=== PATIENT | female | born 1990 | race Caucasian/White ===

== ENCOUNTER 2017-08-17 20:50 | Emergency (ER) | payer OTHER ==
[2017-08-17 20:58] VITALS: BP 116/73; PULSE 97; TEMP 98.2; BMI 46.9
--- NOTE | 2017-08-17 21:00 | PDOC ---
Rapid Medical Evaluation Chief Complaint: Pain Time Seen by Provider: 08/17/17 20:57 Medical Evaluation: Allergies Allergy/AdvReac Type Severity Reaction Status Date / Time Penicillins Allergy Verified 08/17/17 20:56 Vital Signs Temp Pulse Resp BP Pulse Ox 98.2 F 97 H 16 116/73 99 08/17/17 20:56 08/17/17 20:56 08/17/17 20:56 08/17/17 20:56 08/17/17 20:56 08/17/17 20:58 Pt with c/o: periumbilical pain x 5 days, no other complaints, lmp 07/17, lbm 3 days ago? ( pt states normal) Pt on brief exam: vss, abd distention, Pt ordered: ua, hcg urine, kub Pt to proceed to the ED Discharge Disposition - Diagnosis Abdominal pain - Referrals - Patient Instructions - Post Discharge Activity
[2017-08-17 22:01] LABS: URINE APPEARANCE CLOUDY; URINE BILIRUBIN NEGATIVE (NEGATIVE); URINE BLOOD NEGATIVE (NEGATIVE); URINE COLOR YELLOW; URINE GLUCOSE (UA) NEGATIVE (NEGATIVE); URINE KETONE NEGATIVE (NEGATIVE); URINE NITRITE NEGATIVE (NEGATIVE); URINE PROTEIN NEGATIVE (NEGATIVE); URINE UROBILINOGEN NEGATIVE mg/dL (0.2-1.0)
[2017-08-17 22:08] LABS: URINE LEUK ESTERASE 3+ (NEGATIVE)
[2017-08-17 22:09] LABS: EPI CELLS MANY /HPF (FEW); URINE BACTERIA RARE /hpf (NONE SEEN); URINE MUCUS RARE
[2017-08-17 22:10] LABS: HCG,QUALITATIVE URINE NEGATIVE
--- NOTE | 2017-08-17 22:16 | PDOC ---
History of Present Illness - General Chief Complaint: Pain Stated Complaint: ABDOMINAL PAIN Time Seen by Provider: 08/17/17 20:57 History Source: Patient - History of Present Illness Initial Comments: 08/17/17 22:35 26 year old female with epigastric/ midgastric pain x 1 day worse after eating. denies NVD, chest pain, fever/ chills. no pmhx. Past History - Past Medical History Allergies/Adverse Reactions: Allergies Allergy/AdvReac Type Severity Reaction Status Date / Time Penicillins Allergy Verified 08/17/17 20:56 Home Medications: Ambulatory Orders Famotidine [Pepcid] 40 mg PO DAILY #7 tablet 08/18/17 - Suicide/Smoking/Psychosocial Hx Smoking History: Never smoked Hx Alcohol Use: No Drug/Substance Use Hx: No Review of Systems - Review of Systems Able to Perform ROS?: Yes Is the patient limited Latvian proficient: No Constitutional: No: Symptoms Reported, See HPI, Chills, Diaphoresis, Fever, Loss of Appetite, Malaise, Night Sweats, Weakness, Weight Stable, Unintentional Wgt. Loss, Unexplained wgt Loss, Other Cardiac (ROS): No: Symptoms Reported, See HPI, Chest Pain, Edema, Irregular Heart Rate, Lightheadedness, Palpitations, Syncope, Chest Tightness, Other ABD/GI: Yes: Other (mid/ epigastric pain and tenderness). No: Symptoms Reported , See HPI, Abdominal Distended, Abd. Pain w/ defecation, Blood Streaked Bowels, Constipated, Diarrhea, Difficulty Swallowing, Nausea, Poor Appetite, Poor Fluid Intake, Rectal Bleeding, Vomiting, Indigestion, Abdominal cramping, Tarry Stools : No: Symptoms Reported, See HPI, Burning, Dysuria, Discharge, Frequency, Flank Pain, Hematuria, Incontinence, Pain, Urgency, Testicular Mass, Testicular Swelling, Lesions, Testicular Pain, Other *Physical Exam - Vital Signs Last Vital Signs Temp Pulse Resp BP Pulse Ox 98.2 F 97 H 16 116/73 99 08/17/17 20:56 08/17/17 20:56 08/17/17 20:56 08/17/17 20:56 08/17/17 20:56 - Physical Exam General Appearance: Yes: Appropriately Dressed Respiratory/Chest: positive: Lungs Clear, Normal Breath Sounds Cardiovascular: positive: Regular Rhythm, Regular Rate Gastrointestinal/Abdominal: positive: Normal Bowel Sounds, Tender (midgastric/ epigastric), Soft Musculoskeletal: positive: Normal Inspection Extremity: positive: Normal Capillary Refill, Normal Inspection, Normal Range of Motion Integumentary: positive: Normal Color, Dry, Warm Neurologic: positive: Fully Oriented, Alert, Normal Mood/Affect ED Treatment Course - LABORATORY CBC & Chemistry Diagram: 08/17/17 22:20 08/17/17 22:20 - ADDITIONAL ORDERS Additional order review: Laboratory Results 08/17/17 21:03 Urine Color Yellow Urine Appearance Cloudy Urine pH 6.0 Ur Specific [place] 1.020 Urine Protein Negative Urine Glucose (UA) Negative Urine Ketones Negative Urine Blood Negative Urine Nitrite Negative Urine Bilirubin Negative Urine Urobilinogen Negative Ur Leukocyte Esterase 3+ H Progress Note - Progress Note Progress Note: A: abdominal pain P; CBC CMP UA UCX HCG abdominal u/s: negative CTAP : negatibe *DC/Admit/Observation/Transfer Diagnosis at time of Disposition: Abdominal pain Qualifiers: Abdominal location: upper abdomen, unspecified Qualified Code(s): R10.10 - Upper abdominal pain, unspecified - Discharge Dispostion Disposition: HOME - Prescriptions Prescriptions: Famotidine [Pepcid] 40 mg PO DAILY #7 tablet - Referrals Referrals: Jose M Ferrell MD [Staff Physician] - - Patient Instructions Printed Discharge Instructions: DI for Abdominal Pain-Adult Additional Instructions: drink plenty of fluids. start a bland diet follow up with a gastrenterologist as soon as possible. return to the ED if symptoms worsen. - Post Discharge Activity
[2017-08-17 22:39] LABS: BASO % 1.1 % (0-2.0); EOS % 2.3 % (0-4.5); HEMATOCRIT 31.5 % (32.4-45.2); HEMOGLOBIN 9.9 GM/dL (10.7-15.3); LYMPH % 21.4 % (8-40); MCH 22.3 pg (25.7-33.7); MCHC 31.6 g/dl (32.0-36.0); MEAN CELL VOLUME 70.6 fl (80-96); MONO % 6.2 % (3.8-10.2); PLATELET COUNT 318 K/MM3 (134-434); RBC 4.46 M/mm3 (3.60-5.2); RDW 19.9 % (11.6-15.6)
[2017-08-17 22:46] LABS: ADD RBC MORPHOLOGY YES
[2017-08-17] MEDS ORDERED: RANITIDINE HCL 150 MG TABLET (FP) PO ONE (23:19)
[2017-08-17] MEDS ORDERED: DICYCLOMINE HCL 10 MG CAPSULE PO ONE (23:19)
[2017-08-17 23:22] LABS: ALBUMIN 3.5 g/dl (3.4-5.0); ANION GAP 9 (8-16); ANISOCYTOSIS 2+; BILIRUBIN,TOTAL 0.3 mg/dL (0.2-1.0); BLOOD UREA NITROGEN 16 mg/dL (7-18); CALCIUM 8.7 mg/dL (8.5-10.1); CHLORIDE 106 mmol/L (98-107); CO2 27 mmol/L (21-32); CREATININE 0.8 mg/dL (0.55-1.02); GLUCOSE,RANDOM 87 mg/dL (74-106); POTASSIUM 3.9 mmol/L (3.5-5.1); SGOT/AST 18 U/L (15-37); SODIUM 142 mmol/L (136-145); TOT PROT 7.3 g/dl (6.4-8.2)
[2017-08-17 23:23] LABS: MACROCYTOSIS 1+; OVALOCYTE 1+
[2017-08-17 23:24] LABS: ALK PHOS 78 U/L (45-117); PLATELET ESTIMATE ADEQUATE; SGPT/ALT 25 U/L (12-78)
[2017-08-17] MEDS ORDERED: RANITIDINE HCL 150 MG TABLET (FP) ONE (23:24)
[2017-08-17] MEDS ORDERED: DICYCLOMINE HCL 10 MG CAPSULE ONE (23:24)
--- NOTE | 2017-08-18 00:03 | PDOC ---
*Physical Exam - Vital Signs Last Vital Signs Temp Pulse Resp BP Pulse Ox 98.2 F 97 H 16 116/73 99 08/17/17 20:56 08/17/17 20:56 08/17/17 20:56 08/17/17 20:56 08/17/17 20:56 - Physical Exam General Appearance: Yes: Nourished, Appropriately Dressed. No: Apparent Distress ED Treatment Course - LABORATORY CBC & Chemistry Diagram: 08/17/17 22:20 08/17/17 22:20 - ADDITIONAL ORDERS Additional order review: Laboratory Results 08/17/17 08/17/17 22:20 21:03 Sodium 142 Potassium 3.9 Chloride 106 Carbon Dioxide 27 Anion Gap 9 BUN 16 Creatinine 0.8 Creat Clearance w eGFR > 60 Random Glucose 87 Calcium 8.7 Total Bilirubin 0.3 AST 18 ALT 25 Alkaline Phosphatase 78 Total Protein 7.3 Albumin 3.5 Urine Color Yellow Urine Appearance Cloudy Urine pH 6.0 Ur Specific [place] 1.020 Urine Protein Negative Urine Glucose (UA) Negative Urine Ketones Negative Urine Blood Negative Urine Nitrite Negative Urine Bilirubin Negative Urine Urobilinogen Negative Ur Leukocyte Esterase 3+ H Urine WBC (Auto) 7 Urine RBC (Auto) 2 Ur Epithelial Cells Many Urine Bacteria Rare Urine Mucus Rare Urine HCG, Qual Negative 08/17/17 22:20 RBC 4.46 MCV 70.6 L MCHC 31.6 L RDW 19.9 H MPV 9.0 Neutrophils % 69.0 Lymphocytes % 21.4 Monocytes % 6.2 Eosinophils % 2.3 Basophils % 1.1 - Medications Given in the ED: ED Medications Discontinued Medications Generic Name Dose Route Start Last Admin Trade Name Nolan PRN Reason Stop Dose Admin Dicyclomine HCl 10 mg 08/17/17 23:19 08/17/17 23:28 Bentyl - PO 08/17/17 23:20 10 mg ONCE ONE Administration Ranitidine HCl 300 mg 08/17/17 23:19 08/17/17 23:28 Zantac - PO 08/17/17 23:20 300 mg ONCE ONE Administration Medical Decision Making - Medical Decision Making 08/18/17 00:02 Pt seen/examined, discussed case with GOMEZ King. Pt with abd pain and reported fever at home of 100.4. No vomiting, diarrhea. +epigastric and periumbilical tnd. US abd normal. +leukocytosis, afebrile in ED. Will CT abd/pelvis with PO and IV contrast to eval for appendicitis. Other possibilities on ddx include gastritis, PUD. If CT normal, likely outpt GI f/u. *DC/Admit/Observation/Transfer Diagnosis at time of Disposition: Abdominal pain Qualifiers: Abdominal location: upper abdomen, unspecified Qualified Code(s): R10.10 - Upper abdominal pain, unspecified - Referrals - Patient Instructions - Post Discharge Activity
[2017-08-18] MEDS ORDERED: KETOROLAC TROMETHAMINE 30 MG/1 ML VIAL IVPUSH ONE (03:01)
[2017-08-18] MEDS ORDERED: KETOROLAC TROMETHAMINE 30 MG/1 ML VIAL ONE (03:27)
== END 2017-08-18 03:51 | disposition home or self-care (01) ==
LOC: JER 20:50
PROC: 3E0333Z Introduction of Anti-inflammatory into Peripheral Vein, Percutaneous Approach (ICD-10-PCS; principal; 2017-08-17)
DX: R10.10 Upper abdominal pain, unspecified (principal)
CPT/HCPCS: 36415; 74018-TC; 74177-TC; 76705-TC; 80053; 81003; 81015; 84703; 85025; 86850; 86900; 86901; 99282-25

== ENCOUNTER 2017-08-19 17:50 | Emergency (ER) | payer OTHER ==
--- NOTE | 2017-08-19 17:52 | PDOC ---
Rapid Medical Evaluation Time Seen by Provider: 08/19/17 17:52 Medical Evaluation: Allergies Allergy/AdvReac Type Severity Reaction Status Date / Time Penicillins Allergy Verified 08/19/17 17:52 08/19/17 17:52 Ortherwise healthy 26 year old female seen 08/17 with epigastric abdominal pain. U/s and CT at that time unremarkable except for fecal retention. Returns today with persistent symptoms, pain worse with eating. New symptom of diarrhea. Taking Pepcid without relief of pain. V/s unremarkable. Labs including CBC, CMP, lipase, UA, urine To Main ED for further evaluation
[2017-08-19 17:55] VITALS: BP 115/65; PULSE 83; TEMP 98.1; BMI 40.7
[2017-08-19 18:22] LABS: BASO % 0.4 % (0-2.0); EOS % 3.9 % (0-4.5); HEMATOCRIT 34.6 % (32.4-45.2); LYMPH % 23.6 % (8-40); MCH 22.5 pg (25.7-33.7); MCHC 31.8 g/dl (32.0-36.0); MEAN CELL VOLUME 70.7 fl (80-96); MONO % 5.4 % (3.8-10.2); NEUT % 66.7 % (42.8-82.8); PLATELET COUNT 368 K/MM3 (134-434); RBC 4.89 M/mm3 (3.60-5.2); RDW 20.2 % (11.6-15.6); WHITE BLOOD COUNT 12.4 K/mm3 (4.0-10.0)
[2017-08-19 18:22] LABS: HCG,QUALITATIVE URINE NEGATIVE
[2017-08-19 18:26] LABS: URINE APPEARANCE SLCLOUDY; URINE BILIRUBIN NEGATIVE (NEGATIVE); URINE BLOOD NEGATIVE (NEGATIVE); URINE COLOR LTYELLOW; URINE GLUCOSE (UA) NEGATIVE (NEGATIVE); URINE KETONE NEGATIVE (NEGATIVE); URINE NITRITE NEGATIVE (NEGATIVE); URINE PROTEIN NEGATIVE (NEGATIVE); URINE UROBILINOGEN NEGATIVE mg/dL (0.2-1.0)
[2017-08-19 18:28] LABS: URINE LEUK ESTERASE 2+ (NEGATIVE)
[2017-08-19 18:35] LABS: EPI CELLS MODERATE /HPF (FEW); URINE BACTERIA RARE /hpf (NONE SEEN); URINE MUCUS RARE
[2017-08-19 18:56] LABS: ALBUMIN 3.8 g/dl (3.4-5.0); ANION GAP 3 (8-16); BLOOD UREA NITROGEN 11 mg/dL (7-18); CHLORIDE 104 mmol/L (98-107); CO2 30 mmol/L (21-32); GLUCOSE,RANDOM 85 mg/dL (74-106); LIPASE 198 U/L (73-393); POTASSIUM 4.3 mmol/L (3.5-5.1); SGPT/ALT 25 U/L (12-78); SODIUM 137 mmol/L (136-145)
[2017-08-19 18:58] LABS: ALK PHOS 83 U/L (45-117); BILIRUBIN,TOTAL 0.5 mg/dL (0.2-1.0); CREATININE 0.7 mg/dL (0.55-1.02); SGOT/AST 18 U/L (15-37); TOT PROT 7.9 g/dl (6.4-8.2)
--- NOTE | 2017-08-19 19:33 | PDOC ---
History of Present Illness - General Chief Complaint: Pain Stated Complaint: STOMACH PAIN Time Seen by Provider: 08/19/17 17:52 - History of Present Illness Initial Comments: 08/19/17 19:29 26 yo F with h/o sickle cell trait who presents with abdominal pain. Patient reports ongoing burning/sharp epigastria/substernal abdominal pain for the past week. Pain is unrelenting, worse with meals and supine positioning, and asx. / nausea w/out vomiting. 1 episode of non bloody, loose stool. Denies F/C, CP, SOB , urinary complaints, irregular vaginal bleeding, hematuria, weakness, lightheadedness, LOC. Denies abdominal trauma or complaints. Evaluated in [facility] ED ( 08/18/17) CT AP ( 08/18/17) : Fecal retention. Otherwise unremarkable. GB U /S: Unremarkable. Sent home with Pepcid prescription. Neg evidence of cholecystitis, cholelithiasis, or biliary dz. Denies h/o abdominal pathology or surgery. Denies h/o endoscopy or PUD. Past History - Past Medical History Allergies/Adverse Reactions: Allergies Allergy/AdvReac Type Severity Reaction Status Date / Time Penicillins Allergy Verified 08/19/17 17:52 Home Medications: Ambulatory Orders Famotidine [Pepcid] 40 mg PO DAILY #7 tablet 08/18/17 Pantoprazole Sodium [Protonix] 40 mg PO DAILY #30 tablet.dr SANABRIA 1 tab 08/19/17 COPD: No - Suicide/Smoking/Psychosocial Hx Smoking History: Never smoked Have you smoked in the past 12 months: No Information on smoking cessation initiated: No Hx Alcohol Use: No Drug/Substance Use Hx: No Substance Use Type: None Review of Systems - Review of Systems Comments:: 08/19/17 19:29 GENERAL/CONSTITUTIONAL: No fever or chills. No weakness. HEAD, EYES, EARS, NOSE AND THROAT: No change in vision. No ear pain or discharge. No sore throat.- CARDIOVASCULAR: No chest pain or shortness of breath RESPIRATORY: No cough, wheezing, or hemoptysis. GASTROINTESTINAL: + Abdominal pain. No nausea, vomiting, diarrhea or constipation. GENITOURINARY: No dysuria, frequency, or change in urination. MUSCULOSKELETAL: No joint or muscle swelling or pain. No neck or back pain. SKIN: No rash NEUROLOGIC: No headache, vertigo, loss of consciousness, or change in strength/ sensation. ENDOCRINE: No increased thirst. No abnormal weight change HEMATOLOGIC/LYMPHATIC: No anemia, easy bleeding, or history of blood clots. ALLERGIC/IMMUNOLOGIC: No hives or skin allergy. *Physical Exam - Vital Signs Last Vital Signs Temp Pulse Resp BP Pulse Ox 98.1 F 83 18 115/65 100 08/19/17 17:52 08/19/17 17:52 08/19/17 17:52 08/19/17 17:52 08/19/17 17:52 - Physical Exam Comments: 08/19/17 19:29 GENERAL: Awake, alert, and fully oriented, in no acute distress HEAD: No signs of trauma, normocephalic, atraumatic EYES: PERRLA, EOMI, sclera anicteric, conjunctiva clear ENT: Hearing grossly normal, nares patent, oropharynx clear without exudates. Moist mucosa NECK: Normal ROM, no JVD, or masses LUNGS: No distress, speaks full sentences, clear to auscultation bilaterally HEART: Regular rate and rhythm, normal S1 and S2, no murmurs, rubs or gallops, peripheral pulses normal and equal bilaterally. ABDOMEN: Soft, + epigastric ttp, normoactive bowel sounds. No guarding, no rebound. No masses. Neg rigidity. Neg CVA ttp.Neg suprapubic ttp. EXTREMITIES : Normal inspection, Normal range of motion, no edema. No clubbing or cyanosis. SKIN: Warm, Dry, normal turgor, no rashes or lesions noted. ED Treatment Course - LABORATORY CBC & Chemistry Diagram: 08/19/17 18:02 08/19/17 18:02 - ADDITIONAL ORDERS Additional order review: Laboratory Results 08/19/17 08/19/17 18:10 18:02 Sodium 137 Potassium 4.3 Chloride 104 Carbon Dioxide 30 Anion Gap 3 L BUN 11 Creatinine 0.7 Creat Clearance w eGFR > 60 Random Glucose 85 Calcium 9.0 Total Bilirubin 0.5 D AST 18 ALT 25 Alkaline Phosphatase 83 Total Protein 7.9 Albumin 3.8 Lipase 198 Urine Color Ltyellow Urine Appearance Slcloudy Urine pH 7.0 Ur Specific [place] 1.016 Urine Protein Negative Urine Glucose (UA) Negative Urine Ketones Negative Urine Blood Negative Urine Nitrite Negative Urine Bilirubin Negative Urine Urobilinogen Negative Ur Leukocyte Esterase 2+ H Urine WBC (Auto) 4 Urine RBC (Auto) <1 Ur Epithelial Cells Moderate Urine Bacteria Rare Urine Mucus Rare Urine HCG, Qual Negative 08/19/17 18:02 RBC 4.89 MCV 70.7 L MCHC 31.8 L RDW 20.2 H MPV 9.0 Neutrophils % 66.7 Lymphocytes % 23.6 Monocytes % 5.4 Eosinophils % 3.9 Basophils % 0.4 Medical Decision Making - Medical Decision Making 08/19/17 19:31 26 yo F with h/o sickle cell trait who presents with ongoing unrelenting, burning/sharp epigastria/substernal abdominal pain for the past week. Worse with meals and supine positioning, and asx. / nausea w/out vomiting. 1 episode of non bloody, loose stool today. Denies F/C, CP, SOB, urinary complaints, irregular vaginal bleeding, hematuria, weakness, lightheadedness, LOC. Denies abdominal trauma or complaints. Recently evaluated in [facility] ED ( 08/18/17) with normal CT AP ( 08/18/17) and RUQ U/S. Physical exam with slight ttp. HDS. Patient with s/s likely 2/2/ esophagitis vs gastritis. Possible PUD. Patient advised to f/u with gastroenterology. Low suspicion of pancreatitis, choleycystitis, or other concerning GI pathology given unremarkable abdominal exam and recent normal imaging. ED Course: CBC: Unremarkable CMP: Unremarkble UA: Neg BHCG: Neg Protonix, Carafate, Viscous lidocaine, Maloox Will reassess pain. 08/19/17 20:26 Protonix sent to pharmacy. Patient stable and ready for d/c with return precautions. Advised to f/u with GI at scheduled appointment date. *DC/Admit/Observation/Transfer Diagnosis at time of Disposition: Abdominal pain Qualifiers: Abdominal location: epigastric Qualified Code(s): R10.13 - Epigastric pain - Discharge Dispostion Condition at time of disposition: Stable Admit: No - Prescriptions Prescriptions: Pantoprazole Sodium [Protonix] 40 mg PO DAILY #30 tablet.dr SANABRIA 1 tab - Referrals Referrals: Rylan Luu MD [Staff Physician] - - Patient Instructions Printed Discharge Instructions: DI for Epigastric Pain Additional Instructions: Please return to the emergency department with any new or worsening symptoms or concerns. Please follow up with your primary care physician or gastroenterology within one week. - Post Discharge Activity - Attestations Physician Attestion: 08/19/17 19:32 I attest to the documentation in this note.
[2017-08-19] MEDS ORDERED: MAG HYDROX/AL HYDROX/SIMETH 30 ML UNIT-DOSE CUP PO ONE (19:48)
[2017-08-19] MEDS ORDERED: SUCRALFATE 1 GM TABLET (FP) PO ONE (19:48)
[2017-08-19] MEDS ORDERED: LIDOCAINE VISCOUS 2% ORAL/TOP 20 ML UNIT-DOSE CUP MM ONE (19:48)
[2017-08-19] MEDS ORDERED: SUCRALFATE 1 GM TABLET (FP) ONE (20:16)
[2017-08-19] MEDS ORDERED: MAG HYDROX/AL HYDROX/SIMETH 30 ML UNIT-DOSE CUP ONE (20:16)
[2017-08-19] MEDS ORDERED: LIDOCAINE VISCOUS 2% ORAL/TOP 20 ML UNIT-DOSE CUP ONE (20:16)
[2017-08-19] MEDS ORDERED: PANTOPRAZOLE 40 MG TABLET (FP) PO ONE (20:17)
--- NOTE | 2017-08-19 20:18 | PDOC ---
Attending Attestation - HPI HPI: 08/19/17 20:49 The patient is a 26 year old female with sickle cell trait, who presents to the ED with complaints of epigastric pain for the past few days. She complains of an ongoing, burning, sharp pain that is worse with meals and lying in supine position. The patient reports her pain occasionally radiates to her umbilicus. She denies any nausea or vomiting but reports 1 loose stool today. The patient denies any fever or chills. She denies any GI history or consult in the past. Documentation prepared by Cecilia Villalba, acting as medical laboratory technician for Shamika Lugo DO. <Cecilia Villalba - Last Filed: 08/19/17 20:48> - Resident Resident Name: Dean Stokes - ED Attending Attestation I have performed the following: I have examined & evaluated the patient, The case was reviewed & discussed with the resident, I agree w/resident's findings & plan, Exceptions are as noted - Physicial Exam PE: 08/20/17 01:55 Gen: aaox3, nad heart: +s1s2 reg Lungs: cta b/l abd: soft, mild epigastric ttp ext: no c/c/ce - Medical Decision Making 08/19/17 20:18 I, Dr. Shamika Lugo DO, attest that this document has been prepared under my direction and personally reviewed by me in its entirety. I further attest, that it accurately reflects all work, treatment, procedures and medical decision -making performed by me. 08/19/17 20:33 a/p: 26yo female with epigastric pain -labs and ct last night were negative for acute findings will repeat labs today 08/19/17 20:33 labs reviewed, no acute findings mild anemia pt with mild epigastric burning, suspect PUD vs gastritis will medicate has appt with Lantin for next wednesday discussed dietary changes and need to keep appt with lantin answered all questions <Shamika Lugo - Last Filed: 08/20/17 01:56>
[2017-08-19] MEDS ORDERED: PANTOPRAZOLE 40 MG TABLET (FP) ONE (20:31)
== END 2017-08-19 21:25 | disposition home or self-care (01) ==
LOC: JER 17:50
DX: R10.13 Epigastric pain (principal)
CPT/HCPCS: 36415; 80053; 81003; 81015; 83690; 84703; 85025; 99282-25

== ENCOUNTER 2017-11-06 15:10 | Emergency (ER) | payer OTHER ==
[2017-11-06 15:37] VITALS: BP 106/58; PULSE 93; TEMP 97.6; BMI 40.7
--- NOTE | 2017-11-06 15:41 | PDOC ---
History of Present Illness - General Chief Complaint: Pain Stated Complaint: ABD PAIN Time Seen by Provider: 11/06/17 15:40 - History of Present Illness Initial Comments: 11/06/17 15:57 Ms. Bob is a 27 yo female w/ pmh of sickle trait and prior workup for epigastric pain relieved with protonix who presents c/o a 1 day history of RUQ abdominal pain she describes as burning in nature. She reports it is worse with bending down and that she has also recently felt bloated as well. She says that the pain comes and goes although she cannot relate it to anything. The patient denies chest pain, shortness of breath, headache and dizziness. Denies fever, chills, nausea, vomit, diarrhea and constipation. Denies dysuria, frequency, urgency and hematuria. Allergies: Penicillin Past History - Past Medical History Allergies/Adverse Reactions: Allergies Allergy/AdvReac Type Severity Reaction Status Date / Time Penicillins Allergy Verified 11/06/17 15:31 Home Medications: Ambulatory Orders Pantoprazole Sodium [Protonix -] 40 mg PO DAILY #7 tablet.ec 11/06/17 COPD: No - Suicide/Smoking/Psychosocial Hx Smoking History: Never smoked Have you smoked in the past 12 months: No Hx Alcohol Use: No Drug/Substance Use Hx: No Substance Use Type: None Review of Systems - Review of Systems Comments:: 11/06/17 15:59 GENERAL/CONSTITUTIONAL: No fever or chills. No weakness. HEAD, EYES, EARS, NOSE AND THROAT: No change in vision. No ear pain or discharge. No sore throat. CARDIOVASCULAR: No chest pain or shortness of breath RESPIRATORY: No cough, wheezing, or hemoptysis. GASTROINTESTINAL: +RUQ pain as described. No nausea, vomiting, diarrhea or constipation. GENITOURINARY: No dysuria, frequency, or change in urination. MUSCULOSKELETAL: No joint or muscle swelling or pain. No neck or back pain. SKIN: No rash NEUROLOGIC: No headache, vertigo, loss of consciousness, or change in strength/ sensation. ENDOCRINE: No increased thirst. No abnormal weight change HEMATOLOGIC/LYMPHATIC: No anemia, easy bleeding, or history of blood clots. ALLERGIC/IMMUNOLOGIC: No hives or skin allergy. *Physical Exam - Vital Signs Last Vital Signs Temp Pulse Resp BP Pulse Ox 97.6 F 93 H 18 106/58 99 11/06/17 15:29 11/06/17 15:29 11/06/17 15:29 11/06/17 15:29 11/06/17 15:29 - Physical Exam Comments: 11/06/17 15:59 GENERAL: Awake, alert, and fully oriented, in no acute distress HEAD: No signs of trauma, normocephalic, atraumatic EYES: PERRLA, EOMI, sclera anicteric, conjunctiva clear ENT: Auricles normal inspection, hearing grossly normal, nares patent, oropharynx clear without exudates. Moist mucosa NECK: Normal ROM, supple, no lymphadenopathy, JVD, or masses LUNGS: No distress, speaks full sentences, clear to auscultation bilaterally HEART: Regular rate and rhythm, normal S1 and S2, no murmurs, rubs or gallops, peripheral pulses normal and equal bilaterally. ABDOMEN: +RUQ TTP. Soft, normoactive bowel sounds. No guarding, no rebound. No masses EXTREMITIES: Normal inspection, Normal range of motion, no edema. No clubbing or cyanosis. NEUROLOGICAL: Cranial nerves II through XII grossly intact. Normal speech, normal gait, no focal sensorimotor deficits SKIN: Warm, Dry, normal turgor, no rashes or lesions noted. ED Treatment Course - LABORATORY CBC & Chemistry Diagram: 11/06/17 16:00 11/06/17 16:00 Medical Decision Making - Medical Decision Making 11/06/17 16:00 Ms. Bob is a 27 yo female w/ pmh as described who presents for evaluation of RUQ pain. Protonix and maalox given for symptomatic relief. Workup begun to R/O pathology including RUQ US and CBC/CMP/UA/Upreg. 11/06/17 18:02 Labs grossly wnl as below. US negative for acute pathology. Patient reporting improvement of pain. Will discharge w/ protonix Rx and instructions to f/u w/ PCP/GI for further evaluation. Laboratory Results - last 24 hr 11/06/17 11/06/17 11/06/17 15:55 16:00 16:00 WBC 11.4 H RBC 4.90 Hgb 11.2 Hct 34.4 MCV 70.4 L MCH 22.9 L MCHC 32.6 RDW 20.3 H Plt Count 309 MPV 8.8 Neutrophils % 48.2 D Lymphocytes % 41.7 H D Monocytes % 7.6 Eosinophils % 2.0 Basophils % 0.5 Sodium 139 Potassium 4.3 Chloride 104 Carbon Dioxide 28 Anion Gap 7 L BUN 13 Creatinine 0.7 Creat Clearance w eGFR > 60 Random Glucose 84 Calcium 8.8 Total Bilirubin 0.4 AST 22 ALT 21 Alkaline Phosphatase 73 Total Protein 7.6 Albumin 3.6 Lipase 189 Urine Color Ltyellow Urine Appearance Cloudy Urine pH 7.0 Ur Specific [place] 1.016 Urine Protein Negative Urine Glucose (UA) Negative Urine Ketones Negative Urine Blood Negative Urine Nitrite Negative Urine Bilirubin Negative Urine Urobilinogen 2.0 H Ur Leukocyte Esterase 1+ H Urine WBC (Auto) 2 Urine RBC (Auto) 1 Ur Epithelial Cells Moderate Hyaline Casts 1 Urine Mucus Rare Urine HCG, Qual Negative *DC/Admit/Observation/Transfer Diagnosis at time of Disposition: Abdominal pain Qualifiers: Abdominal location: right upper quadrant Qualified Code(s): R10.11 - Right upper quadrant pain - Discharge Dispostion Disposition: HOME - Referrals - Patient Instructions Printed Discharge Instructions: DI for Abdominal Pain-Adult Additional Instructions: Take protonix prescription daily as written. Follow-up with Gastroenterology and primary care provider for further evaluation of abdominal pain. Return to ER if any fever, chills, increase in pain, or other concerning symptoms. - Post Discharge Activity
[2017-11-06] MEDS ORDERED: MAG HYDROX/AL HYDROX/SIMETH 30 ML UNIT-DOSE CUP PO ONE (15:54)
[2017-11-06] MEDS ORDERED: SODIUM CHLORIDE 1,000 ML IV STA (16:02)
--- NOTE | 2017-11-06 16:02 | PDOC ---
Attending Attestation - Resident Resident Name: Rohith Raza - ED Attending Attestation I have performed the following: I have examined & evaluated the patient, The case was reviewed & discussed with the resident, I agree w/resident's findings & plan, Exceptions are as noted - HPI HPI: 11/06/17 15:59 27 F with sickle cell trait presenting to ED with RUQ pain x 1 day. Pt has had multiple prior presentations to ED for similar complaints and had negative CT as well as RUQ sono. However, pt states that her pain today is localized more to the RUQ. Pt denies any N/V. Denies F/C. Denies diarrhea/constipation. Denies dysuria. Denies vaginal bleeding or discharge. - Physicial Exam PE: 11/06/17 16:01 "GENERAL: Awake, alert, and fully oriented, in no acute distress. HEAD: No signs of trauma EYES: PERRLA, EOMI, sclera anicteric, conjunctiva clear ENT: Auricles normal inspection, hearing grossly normal, nares patent, oropharynx clear without exudates. Moist mucosa NECK: Nontender, no stepoffs, Normal ROM, supple, no lymphadenopathy, JVD, or masses LUNGS: Breath sounds equal, clear to auscultation bilaterally. No wheezes, and no crackles HEART: Regular rate and rhythm, normal S1 and S2, no murmurs, rubs or gallops ABDOMEN: + RUQ tenderness, normoactive bowel sounds. No guarding, no rebound. No masses EXTREMITIES: Normal range of motion, no edema. No clubbing or cyanosis. No cords, erythema, or tenderness NEUROLOGICAL: Cranial nerves II through XII intact. 5/5 strength and sensation in all extremities, Normal speech, normal gait, normal cerebellar function SKIN: Warm, Dry, normal turgor, no rashes or lesions noted. " - Medical Decision Making 11/06/17 16:01 27 F with RUQ pain. Will r/o acute alyson, though suspicion is low given prior negative work ups for similar presentations. - Labs, lipase - UA, UPT - RUQ sono - IVF, GI cocktail Pt signed out to Dr. Rowland at 5PM, pending US, labs, and re-evaluation.
[2017-11-06 16:12] LABS: BASO % 0.5 % (0-2.0); HEMATOCRIT 34.4 % (32.4-45.2); HEMOGLOBIN 11.2 GM/dL (10.7-15.3); LYMPH % 41.7 % (8-40); MCH 22.9 pg (25.7-33.7); MCHC 32.6 g/dl (32.0-36.0); MEAN CELL VOLUME 70.4 fl (80-96); MEAN PLT VOLUME 8.8 fl (7.5-11.1); MONO % 7.6 % (3.8-10.2); NEUT % 48.2 % (42.8-82.8); PLATELET COUNT 309 K/MM3 (134-434); RDW 20.3 % (11.6-15.6); WHITE BLOOD COUNT 11.4 K/mm3 (4.0-10.0)
[2017-11-06 16:17] LABS: HCG,QUALITATIVE URINE NEGATIVE
[2017-11-06 16:21] LABS: URINE APPEARANCE CLOUDY; URINE BILIRUBIN NEGATIVE (<2.0 mg/dL); URINE BLOOD NEGATIVE (NEGATIVE); URINE COLOR LTYELLOW; URINE GLUCOSE (UA) NEGATIVE (NEGATIVE); URINE KETONE NEGATIVE (NEGATIVE); URINE NITRITE NEGATIVE (NEGATIVE); URINE PROTEIN NEGATIVE (NEGATIVE)
[2017-11-06 16:25] LABS: URINE LEUK ESTERASE 1+ (NEGATIVE)
[2017-11-06] MEDS ORDERED: FAMOTIDINE 20 MG/50 ML IVPB 20 MG/50 ML MG IVPB ONE (16:25)
[2017-11-06] MEDS ORDERED: MAG HYDROX/AL HYDROX/SIMETH 30 ML UNIT-DOSE CUP ONE (16:25)
[2017-11-06 16:28] LABS: EPI CELLS MODERATE /HPF (FEW); URINE HYALINE CAST 1 /lpf; URINE MUCUS RARE
[2017-11-06] MEDS ORDERED: FAMOTIDINE IV 20 MG/12 ML VIAL IVPUSH ONE (16:31)
[2017-11-06 16:41] LABS: ALBUMIN 3.6 g/dl (3.4-5.0); ANION GAP 7 (8-16); BLOOD UREA NITROGEN 13 mg/dL (7-18); CALCIUM 8.8 mg/dL (8.5-10.1); CHLORIDE 104 mmol/L (98-107); CO2 28 mmol/L (21-32); GLUCOSE,RANDOM 84 mg/dL (74-106); LIPASE 189 U/L (73-393); POTASSIUM 4.3 mmol/L (3.5-5.1); SODIUM 139 mmol/L (136-145)
[2017-11-06 16:43] LABS: BILIRUBIN,TOTAL 0.4 mg/dL (0.2-1.0); CREATININE 0.7 mg/dL (0.55-1.02); SGOT/AST 22 U/L (15-37); SGPT/ALT 21 U/L (12-78); TOT PROT 7.6 g/dl (6.4-8.2)
[2017-11-06 16:44] LABS: ALK PHOS 73 U/L (45-117)
[2017-11-06] MEDS ORDERED: FAMOTIDINE IV 20 MG/12 ML VIAL IVPUSH SCH (22:00)
== END 2017-11-06 18:33 | disposition home or self-care (01) ==
LOC: JER 15:10
PROC: 3E0337Z Introduction of Electrolytic and Water Balance Substance into Peripheral Vein, Percutaneous Approach (ICD-10-PCS; principal; 2017-11-06)
PROC: 3E033GC Introduction of Other Therapeutic Substance into Peripheral Vein, Percutaneous Approach (ICD-10-PCS; 2017-11-06)
DX: R10.11 Right upper quadrant pain (principal)
CPT/HCPCS: 36415; 76705-TC; 80053; 81003; 81015; 83690; 84703; 85025; 99283-25; J7030

== ENCOUNTER 2017-12-20 14:14 | Emergency (ER) | payer OTHER ==
[2017-12-20 14:24] VITALS: BP 123/77; PULSE 99; TEMP 98.6; BMI 41.8
--- NOTE | 2017-12-20 14:30 | PDOC ---
Rapid Medical Evaluation Chief Complaint: Nausea/Vomiting Time Seen by Provider: 12/20/17 14:23 Medical Evaluation: Allergies Allergy/AdvReac Type Severity Reaction Status Date / Time Penicillins Allergy Verified 12/20/17 14:21 Vital Signs Temp Pulse Resp BP Pulse Ox 98.6 F 99 H 19 123/77 100 12/20/17 14:22 12/20/17 14:22 12/20/17 14:22 12/20/17 14:22 12/20/17 14:22 12/20/17 14:25 lmp 10/19/17, c/o OF MISSED Menses, breast tenderness and abd cramping. Never preg but took home preg and was POSITIVE. Also c/o N/V/ x 2 yesterday but frequent watery stools x 2 days. Boyfriend ill with GI Virus last week w same. No fevers/ no bleeding/ no recent travel or tainted food. Will obtain UA/UCG.. 12/20/17 14:30
[2017-12-20] MEDS ORDERED: ONDANSETRON *ODT* 4 MG TABLET SL ONE (14:43)
--- NOTE | 2017-12-20 14:55 | PDOC ---
History of Present Illness - General Chief Complaint: Nausea/Vomiting Stated Complaint: FEVER, DIARRHEA Time Seen by Provider: 12/20/17 14:23 History Source: Patient Exam Limitations: No Limitations - History of Present Illness Initial Comments: 12/20/17 14:54 27 yr female with c/o pos test at home nausea, breast pain. Pt with c/ o diarrhea the last 2 days no fever, loose brown stool. no abd pain no urinary complaints. Past History - Past Medical History Allergies/Adverse Reactions: Allergies Allergy/AdvReac Type Severity Reaction Status Date / Time Penicillins Allergy Verified 12/20/17 14:21 Home Medications: Ambulatory Orders Nitrofurantoin Macrocrystal [Macrodantin] 100 mg PO BID #14 capsule 12/20/17 COPD: No Other medical history: DENIES. - Suicide/Smoking/Psychosocial Hx Smoking History: Never smoked Have you smoked in the past 12 months: No Hx Alcohol Use: No Drug/Substance Use Hx: No Substance Use Type: None *Physical Exam - Vital Signs Last Vital Signs Temp Pulse Resp BP Pulse Ox 98.6 F 99 H 19 123/77 100 12/20/17 14:22 12/20/17 14:22 12/20/17 14:22 12/20/17 14:22 12/20/17 14:22 - Physical Exam General Appearance: Yes: Nourished, Appropriately Dressed HEENT: positive: EOMI, REESE Neck: positive: Supple Respiratory/Chest: positive: Lungs Clear, Normal Breath Sounds Cardiovascular: positive: Regular Rhythm, Regular Rate Female Pelvic Exam: positive: normal external exam Gastrointestinal/Abdominal: positive: Normal Bowel Sounds, Soft Musculoskeletal: positive: Normal Inspection Extremity: positive: Normal Capillary Refill, Normal Inspection, Normal Range of Motion Integumentary: positive: Normal Color, Dry, Warm Neurologic: positive: Fully Oriented, Alert, Normal Mood/Affect, Normal Response , Motor Strength 5/5 Medical Decision Making - Medical Decision Making 12/20/17 14:56 cc: pos pregn test at home LMP last month no abd pain no vomiting boyfriend had similair symptoms at home with diarrhea last week no travel will check UA zofran for nausea 12/20/17 15:15 UA positive will treat for UTI urine culture sent *DC/Admit/Observation/Transfer Diagnosis at time of Disposition: Urinary tract infection affecting care of mother in first trimester, antepartum - Discharge Dispostion Disposition: HOME Condition at time of disposition: Good - Prescriptions Prescriptions: Nitrofurantoin Macrocrystal [Macrodantin] 100 mg PO BID #14 capsule - Referrals Referrals: Naomi Coker MD [Staff Physician] - - Patient Instructions Additional Instructions: take the antibiotics for 7 days as prescribed follow with your adult caregiver or with listed below drink pleanty of clear fluids, jello, ice pops, dry crackers dry toast, white rice, bananas follow with your primary care if any worsening symptoms - Post Discharge Activity
[2017-12-20] MEDS ORDERED: ONDANSETRON *ODT* 4 MG TABLET ONE (15:06)
[2017-12-20 15:07] LABS: URINE APPEARANCE CLOUDY; URINE BILIRUBIN NEGATIVE (<2.0 mg/dL); URINE BLOOD NEGATIVE (NEGATIVE); URINE COLOR YELLOW; URINE GLUCOSE (UA) NEGATIVE (NEGATIVE); URINE KETONE NEGATIVE (NEGATIVE); URINE NITRITE NEGATIVE (NEGATIVE); URINE PROTEIN NEGATIVE (NEGATIVE); URINE UROBILINOGEN 4.0 E.U/dl mg/dL (0.2-1.0)
[2017-12-20 15:10] LABS: URINE LEUK ESTERASE 3+ (NEGATIVE)
[2017-12-20 15:11] LABS: EPI CELLS MANY /HPF (FEW); URINE MUCUS RARE
[2017-12-20 15:17] LABS: HCG,QUALITATIVE URINE POSITIVE
== END 2017-12-20 15:50 | disposition home or self-care (01) ==
LOC: JERFT 14:14
DX: O26.891 Other specified pregnancy related conditions, first trimester (principal); O23.31 Infections of other parts of urinary tract in pregnancy, first trimester; Z3A.01 Less than 8 weeks gestation of pregnancy
CPT/HCPCS: 81003; 81015; 84703; 87086; 99281-25; Q0162

== ENCOUNTER 2017-12-22 17:46 | Emergency (ER) | payer OTHER ==
--- NOTE | 2017-12-22 17:48 | PDOC ---
Rapid Medical Evaluation Time Seen by Provider: 12/22/17 17:47 Medical Evaluation: Allergies Allergy/AdvReac Type Severity Reaction Status Date / Time Penicillins Allergy Verified 12/20/17 14:21 I have performed a brief in-person evaluation of this patient. The patient presents with a chief complaint of: lower abdominal pain x 4 days. 6 weeks with LMP 11/13/17. Taking Macrobid for UTI. Was here for vomiting 2 days ago and that has stopped Pertinent physical exam findings: suprapubic pain I have ordered the following: labs, UA, beta hcg The patient will proceed to the ED for further evaluation. Discharge Disposition - Diagnosis Abdominal pain - Referrals - Patient Instructions - Post Discharge Activity
[2017-12-22 17:51] VITALS: BP 110/71; PULSE 83; TEMP 98.6; BMI 41.8
--- NOTE | 2017-12-22 18:24 | PDOC ---
Attending Attestation - HPI HPI: 12/22/17 20:14 The patient is a 27 year old female at 6 weeks , with no significant past medical history, who presents to the emergency department complaining of abdominal pain for the past 2 days. She describes her pain as sharp and located in the suprapubic region. She denies any radiation or modifying factors. She also reports nausea associated with her chief complaints. She notes that she saw her UROLOGIST MD yesterday and was treated for a yeast infection. The patient denies chest pain, shortness of breath, headache or dizziness. Denies fever, chills, vomiting, diarrhea and constipation. Denies dysuria, frequency, urgency and hematuria. LMP 11/13/17 Allergies: None Past surgical history: None reported Social History: Denies tobacco, Etoh, IVDA. UROLOGIST MD: Dr. Coker - Physicial Exam PE: 12/22/17 20:14 Constitutional: Awake, alert, oriented. No acute distress. Head: Normocephalic. Atraumatic Eyes: PERRL. EOMI. Conjunctivae are not pale. ENT: Mucous membranes are moist and intact. Posterior pharynx without exudates or erythema. Uvula midline. Neck: Supple. Full ROM. No lymphadenopathy. Cardiovascular: Regular rate. Regular rhythm. S1, S2 regular. Distal pulses are 2+ and symmetric. Pulmonary/Chest: No evidence of respiratory distress. Clear to auscultation bilaterally No wheezing, rales or rhonchi. Abdominal: (+) Suprapubic tenderness. Soft and non-distended. No rebound, guarding or rigidity. No organomegaly. No palpable masses. Good bowel sounds. Back: No CVA tenderness. Musculoskeletal: No edema. No cyanosis. No clubbing. Full range of motion in all extremities. Nocalf tenderness. Radial/pedal pulses are intact and 2+ bilaterally Skin: Skin is warm and dry. No petechiae. No purpura. Neurological: Alert and oriented to person, place, and time. Cranial nerves II -XII are grossly intact. Normal speech. Strength is grossly symmetric. No sensory deficits. Psychiatric: Good eye contact. Normal interaction, affect and behavior. <Tristan Freeman - Last Filed: 12/22/17 20:14> - Resident Resident Name: Dean Stokes - ED Attending Attestation I have performed the following: I have examined & evaluated the patient, The case was reviewed & discussed with the resident, I agree w/resident's findings & plan, Exceptions are as noted - Medical Decision Making 12/22/17 18:24 I, Dr. Shamika Lugo, DO, attest that this document has been prepared under my direction and personally reviewed by me in its entirety. I further attest, that it accurately reflects all work, treatment, procedures and medical decision -making performed by me. 12/22/17 20:27 Pt is o+ 12/22/17 21:26 a/p: 27yo at about 6 weeks with pelvic pain -dx with vaginal candidiasis by Dr. Coker earlier - no started on antifungal -on pelvic exam has candidiasis -will obtain ultrasound to eval for poss ectopic -will check labs, UA -on macrobid for a UTI dx a few days ago -will give tylenol for pain and Rx for antifungal -will monitor and reassess 12/22/17 22:33 beta >3800 no IUP on ultrasound call placed to Dr. Coker - pts resident care aid 12/22/17 22:41 pt updated on labs and ultrasound 12/22/17 23:[address] Coker who recommends repeat beta in 2 days and ultrasound depending on beta discussed plan with the patient who agrees with the plan <Shamika Lugo - Last Filed: 12/22/17 23:13> Discharge Disposition - Discharge Dispostion Decision to Admit order: No <Shamika Lugo - Last Filed: 12/22/17 23:13> - Diagnosis Marcie infection of genital region, , location unknown Abdominal pain Qualifiers: Abdominal location: lower abdomen, unspecified Qualified Code(s): R10.30 - Lower abdominal pain, unspecified - Discharge Dispostion Disposition: HOME Condition at time of disposition: Stable - Prescriptions Prescriptions: Miconazole Nitrate [Miconazole 3] 1 each VG DAILY 7 Days #7 kit - Referrals Referrals: ON STAFF,NOT [Primary Care Provider] - Naomi Coker MD [Staff Physician] - - Patient Instructions Printed Discharge Instructions: DI for Vaginal Yeast Infection, Managing Symptoms of Additional Instructions: Please return to the emergency department with any new or worsening symptoms or concerns. Please follow up with your mechanical engineering officer within 72 hours. Please take Miconazole and apply it to vaginal region daily for 7 days. Please return to the ED on Sunday 12/24 for a repeat Beta HCG and poss repeat ultrasound. Please call Dr. Coker to arrange for follow up - but also keep your appointment for 01/07. - Post Discharge Activity
[2017-12-22 18:43] LABS: BASO % 0.3 % (0-2.0); EOS % 1.4 % (0-4.5); HEMATOCRIT 32.7 % (32.4-45.2); HEMOGLOBIN 10.5 GM/dL (10.7-15.3); LYMPH % 27.5 % (8-40); MCH 23.1 pg (25.7-33.7); MCHC 32.2 g/dl (32.0-36.0); MEAN CELL VOLUME 71.9 fl (80-96); MEAN PLT VOLUME 9.5 fl (7.5-11.1); MONO % 6.3 % (3.8-10.2); NEUT % 64.5 % (42.8-82.8); PLATELET COUNT 316 K/MM3 (134-434); RBC 4.54 M/mm3 (3.60-5.2); RDW 20.4 % (11.6-15.6); WHITE BLOOD COUNT 11.4 K/mm3 (4.0-10.0)
--- NOTE | 2017-12-22 18:51 | PDOC ---
History of Present Illness - General Chief Complaint: Pain Stated Complaint: 6 wks preg ABD PAIN Time Seen by Provider: 12/22/17 17:47 - History of Present Illness Initial Comments: 12/22/17 18:35 27 yo at 6 wga, LMP 11/13/17, who p/w abdominal pain. Patient reports two days of sharp suprapubic pain, with no identifiable triggers or alleviators. Also endorses nausea without vomitting. Recently see at [facility] [employer] yesterday for yeast infection untreated. Recently completed Nitrofurantoin for UTI. Denies F/C, N/V, CP, SOB, abdominal pain, diarrhea, constipation, BPR, urinary complaints, vaginal bleeing, hematuria, weakness, lightheadedness, sensory changes. PMHx: as noted above. 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 ROS: as noted above SHx: Denies tobacco, Etoh, IVDA. Past History - Past Medical History Allergies/Adverse Reactions: Allergies Allergy/AdvReac Type Severity Reaction Status Date / Time Penicillins Allergy Verified 12/22/17 17:48 Home Medications: Ambulatory Orders Nitrofurantoin Macrocrystal [Macrodantin] 100 mg PO BID #14 capsule 12/20/17 Miconazole Nitrate [Miconazole 3] 1 each VG DAILY 7 Days #7 kit 12/22/17 COPD: No - Suicide/Smoking/Psychosocial Hx Smoking History: Never smoked Have you smoked in the past 12 months: No Information on smoking cessation initiated: No Hx Alcohol Use: No Drug/Substance Use Hx: No Substance Use Type: None Review of Systems - Review of Systems Comments:: 12/22/17 18:38 GENERAL/CONSTITUTIONAL: No fever or chills. No weakness. HEAD, EYES, EARS, NOSE AND THROAT: No change in vision. No ear pain or discharge. No sore throat. CARDIOVASCULAR: No chest pain or shortness of breath RESPIRATORY: No cough, wheezing, or hemoptysis. GASTROINTESTINAL: No nausea, vomiting, diarrhea or constipation. GENITOURINARY:+ dysuria. No frequency, or change in urination. MUSCULOSKELETAL: No joint or muscle swelling or pain. No neck or back pain. SKIN: No rash NEUROLOGIC: No headache, vertigo, loss of consciousness, or change in strength/ sensation. ENDOCRINE: No increased thirst. No abnormal weight change HEMATOLOGIC/LYMPHATIC: No anemia, easy bleeding, or history of blood clots. ALLERGIC/IMMUNOLOGIC: No hives or skin allergy. *Physical Exam - Vital Signs Last Vital Signs Temp Pulse Resp BP Pulse Ox 98.6 F 83 18 110/71 100 12/22/17 17:48 12/22/17 17:48 12/22/17 17:48 12/22/17 17:48 12/22/17 17:48 - Physical Exam Comments: 12/22/17 18:38 GENERAL: Awake, alert, and fully oriented, in no acute distress HEAD: No signs of trauma, normocephalic, atraumatic EYES: PERRLA, EOMI, sclera anicteric, conjunctiva clear ENT: Auricle. Hearing grossly normal, nares patent, oropharynx clear without exudates. Moist mucosa NECK: Normal ROM, supple, no lymphadenopathy, JVD, or masses LUNGS: No distress, speaks full sentences, clear to auscultation bilaterally HEART: Regular rate and rhythm, normal S1 and S2, no murmurs, rubs or gallops, peripheral pulses normal and equal bilaterally. ABDOMEN: + suprapubic tto. Soft, nontender, normoactive bowel sounds. No guarding, no rebound. No masses. Neg CVA ttp. : Nml appearing external genitalia. + curd like white discharge in vaginal vault, with absent blood. Cervical os closed. Neg CMT on BM. EXTREMITIES : Normal inspection, Normal range of motion, no edema. No clubbing or cyanosis. NEUROLOGICAL: Cranial nerves II through XII grossly intact. Normal speech, normal gait, no focal sensorimotor deficits SKIN: Warm, Dry, normal turgor, no rashes or lesions noted ED Treatment Course - LABORATORY CBC & Chemistry Diagram: 12/22/17 18:30 12/22/17 18:30 Medical Decision Making - Medical Decision Making 12/22/17 18:56 27 yo at 6 wga, LMP 11/13/17, who p/w suprapubic ttp abdominal pain, with absent urinary complaints, or vaginal bleeding. VSS, AF, A&Ox3. Probable cystitis vs. worsening marcie vulvovaginitis. Low suspicion pyelonpehritis, absent CVA ttp, non toxic appearing. Absent lower abdominal ttp. Low suspicion of ovarian pathology, appendicits, or other GI pathology including gastritis, colitis. R/o ectopic. ED Course: Transvaginal U/S APAP 1000 mg CBC, CMP: Unremarkable UA: Neg Miconazole sent to pharmacy, and patient instructed on use. *DC/Admit/Observation/Transfer Diagnosis at time of Disposition: Marcie infection of genital region Abdominal pain Qualifiers: Abdominal location: lower abdomen, unspecified Qualified Code(s): R10.30 - Lower abdominal pain, unspecified - Discharge Dispostion Condition at time of disposition: Stable - Prescriptions Prescriptions: Miconazole Nitrate [Miconazole 3] 1 each VG DAILY 7 Days #7 kit - Referrals Referrals: ON STAFF,NOT [Primary Care Provider] - - Patient Instructions Printed Discharge Instructions: DI for Vaginal Yeast Infection Additional Instructions: Please return to the emergency department with any new or worsening symptoms or concerns. Please follow up with your lead etl developer within 72 hours. Please take Miconazole and apply it to vaginal region daily for 7 days. - Post Discharge Activity - Transfer to Acute Care Facility Transfer comment: 12/22/17 18:38 I attest to the information provided in this note. - Attestations Physician Attestion: 12/22/17 20:42 I attest to the information provided in this note.
[2017-12-22 19:01] LABS: URINE APPEARANCE CLEAR; URINE BILIRUBIN NEGATIVE (<2.0 mg/dL); URINE BLOOD NEGATIVE (NEGATIVE); URINE COLOR DKYELLOW; URINE GLUCOSE (UA) NEGATIVE (NEGATIVE); URINE KETONE NEGATIVE (NEGATIVE); URINE LEUK ESTERASE TRACE (NEGATIVE); URINE NITRITE NEGATIVE (NEGATIVE); URINE PROTEIN NEGATIVE (NEGATIVE); URINE UROBILINOGEN NEGATIVE mg/dL (0.2-1.0)
[2017-12-22 19:11] LABS: EPI CELLS FEW /HPF (FEW); URINE MUCUS RARE
[2017-12-22 20:01] LABS: CHLORIDE 107 mmol/L (98-107); SODIUM 139 mmol/L (136-145)
[2017-12-22] MEDS ORDERED: ACETAMINOPHEN 325 MG TABLET (FP) PO ONE (20:26)
[2017-12-22] MEDS ORDERED: ACETAMINOPHEN 325 MG TABLET (FP) ONE (20:36)
[2017-12-22 20:37] LABS: ALBUMIN 3.7 g/dl (3.4-5.0); ALK PHOS 66 U/L (45-117); ANION GAP 9 (8-16); BILIRUBIN,TOTAL 0.6 mg/dL (0.2-1.0); BLOOD UREA NITROGEN 12 mg/dL (7-18); CALCIUM 8.9 mg/dL (8.5-10.1); CO2 23 mmol/L (21-32); CREATININE 0.8 mg/dL (0.55-1.02); GLUCOSE,RANDOM 86 mg/dL (74-106); SGOT/AST 18 U/L (15-37); SGPT/ALT 28 U/L (12-78); TOT PROT 7.4 g/dl (6.4-8.2)
== END 2017-12-22 23:26 | disposition home or self-care (01) ==
LOC: JER 17:46
DX: R10.30 Lower abdominal pain, unspecified (principal); B37.89 Other sites of candidiasis
CPT/HCPCS: 36415; 76817-TC; 80053; 81003; 81015; 84702; 85025; 87086; 99282-25

== ENCOUNTER 2017-12-24 11:00 | Emergency (ER) | payer OTHER ==
[2017-12-24 11:07] VITALS: BP 110/62; PULSE 87; TEMP 98.6; BMI 41.8
--- NOTE | 2017-12-24 12:09 | PDOC ---
History of Present Illness - General Chief Complaint: Revisit, Lab Variance Stated Complaint: REVISIT/ VAGINAL PAIN Time Seen by Provider: 12/24/17 11:17 History Source: Patient Exam Limitations: No Limitations - History of Present Illness Initial Comments: 12/24/17 15:56 Patient is a 27-year-old female , who presents to the emergency department today for repeat beta and ultrasound testing. Patient was seen 2 days ago and her emergency department and diagnosed with a yeast infection. She also had transvaginal ultrasound at that time which did not show a yolk sac in the uterus yet. Patient returns for standard follow-up. Denies abdominal cramping, vaginal bleeding. Admits to vaginal pain. Still with white discharge and does not feel like her symptoms are getting better. Past History - Travel Traveled outside of the country in the last 30 days: No Close contact w/someone who was outside of country & ill: No - Past Medical History Allergies/Adverse Reactions: Allergies Allergy/AdvReac Type Severity Reaction Status Date / Time Penicillins Allergy Verified 12/24/17 11:04 Home Medications: Ambulatory Orders Nitrofurantoin Macrocrystal [Macrodantin] 100 mg PO BID #14 capsule 12/20/17 Miconazole Nitrate [Miconazole 3] 1 each VG DAILY 7 Days #7 kit 12/22/17 Acetaminophen [Tylenol] 325 mg PO QID #30 tablet 12/24/17 COPD: No - Suicide/Smoking/Psychosocial Hx Smoking History: Never smoked Have you smoked in the past 12 months: No Hx Alcohol Use: No Drug/Substance Use Hx: No Substance Use Type: None Review of Systems - Review of Systems Able to Perform ROS?: Yes Comments:: 12/24/17 19:56 CONSTITUTIONAL: Absent: fever, chills, diaphoresis, generalized weakness, malaise, loss of appetite HEENT: Absent: rhinorrhea, nasal congestion, throat pain, throat swelling, difficulty swallowing, mouth swelling, ear pain, eye pain, visual Changes CARDIOVASCULAR: Absent: chest pain, loss of consciousness, palpitations, irregular heart rate, peripheral edema RESPIRATORY: Absent: cough, shortness of breath, dyspnea with exertion, orthopnea, wheezing, stridor, hemoptysis GASTROINTESTINAL: Absent: abdominal pain, abdominal distension, nausea, vomiting, diarrhea, constipation, melena, hematochezia GENITOURINARY: Absent: dysuria, frequency, urgency, hesitancy, hematuria, flank pain, genital pain MUSCULOSKELETAL: Absent: myalgia, arthralgia, joint swelling SKIN: Absent: rash, itching, pallor HEMATOLOGIC/IMMUNOLOGIC: Absent: easy bleeding, easy bruising, lymphadenopathy, frequent infections ENDOCRINE: Absent: unexplained weight gain, unexplained weight loss, heat intolerance, cold intolerance NEUROLOGIC: Absent: headache, focal weakness or paresthesias, dizziness, unsteady gait, seizure, mental status changes, bladder or bowel incontinence PSYCHIATRIC: Absent: anxiety, depression, suicidal or homicidal ideation, hallucinations. Is the patient limited Danish proficient: No *Physical Exam - Vital Signs Last Vital Signs Temp Pulse Resp BP Pulse Ox 98.6 F 87 18 110/62 98 12/24/17 11:05 12/24/17 11:05 12/24/17 11:05 12/24/17 11:05 12/24/17 11:05 - Physical Exam Comments: 12/24/17 19:56 GENERAL: Well developed, well nourished. Awake and alert. No acute distress. HEENT: Normocephalic, atraumatic. PERRLA, EOMI. No conjunctival pallor. Sclera are non- icteric. Moist mucous membranes. Oropharynx is clear. NECK: Supple. Full ROM. No JVD. Carotid pulses 2+ and symmetric, without bruits. No thyromegaly. No lymphadenopathy. CARDIOVASCULAR: Regular rate and rhythm. No murmurs, rubs, or gallops. Distal pulses are 2+ and symmetric. PULMONARY: No evidence of respiratory distress. Lungs clear to auscultation bilaterally. No wheezing, rales or rhonchi. ABDOMINAL: Soft. Non-tender. Non-distended. No rebound or guarding. No organomegaly. Normoactive bowel sounds. MUSCULOSKELETAL Normal range of motion at all joints. No bony deformities or tenderness. No CVA tenderness. EXTREMITIES: No cyanosis. No clubbing. No edema. No calf tenderness. SKIN: Warm and dry. Normal capillary refill. No rashes. No jaundice. NEUROLOGICAL: Alert, awake, appropriate. Cranial nerves 2-12 intact. No deficits to light touch and temperature in face, upper extremities and lower extremities. No motor deficits in the in face, upper extremities and lower extremities. Normoreflexic in the upper and lower extremities. Normal speech. Toes are down- going bilaterally. Gait is normal without ataxia. PSYCHIATRIC: Cooperative. Good eye contact. Appropriate mood and affect. ED Treatment Course - LABORATORY CBC & Chemistry Diagram: 12/24/17 12:00 - RADIOLOGY Radiology Studies Ordered: Category Date Time Status TRANSVAGINAL US PREG [US] Stat Ultrasound 12/24/17 11:57 Ordered Medical Decision Making - Medical Decision Making 12/24/17 19:58 Patient is a 27-year-old female who presents to the emergency department for repeat beta and ultrasound today as well as follow-up of her yeast infection. Beta has doubled at this time. Possible yolk sacs in the uterus. Told patient she needs to return in 2 days for another ultrasound and beta. Also explained to patient needs to continue using the Monistat as prescribed. Referral for RN ANESTHESIOLOGY given. Patient given strict return precautions. Patient says all discharge instructions and all questions were answered. *DC/Admit/Observation/Transfer Diagnosis at time of Disposition: Marcie infection of genital region, , location unknown - Discharge Dispostion Disposition: HOME Condition at time of disposition: Good Decision to Admit order: No - Prescriptions Prescriptions: Acetaminophen [Tylenol] 325 mg PO QID #30 tablet - Referrals Referrals: Nadia Gordon DO [Staff Physician] - Gwendolyn Borges MD [Staff Physician] - - Patient Instructions Printed Discharge Instructions: DI for Vaginal Yeast Infection Additional Instructions: Your yeast infection is most likely causing her pain. Your ultrasound today showed a possible gestational sac within the uterus. Please return to the emergency department in 2-3 days for repeat lab work and ultrasound. Please eat yogurt twice a day to help with her symptoms. Please follow-up with RN ANESTHESIOLOGY. Referrals have been provided for you. Return to the emergency department if you have increased pain, bleeding, abdominal cramping, or if you have any changes in your symptoms. - Post Discharge Activity Forms/Work/School Notes: Back to Work
[2017-12-24 12:20] LABS: BASO % 0.3 % (0-2.0); HEMATOCRIT 32.4 % (32.4-45.2); HEMOGLOBIN 10.5 GM/dL (10.7-15.3); LYMPH % 24.5 % (8-40); MCH 23.3 pg (25.7-33.7); MCHC 32.2 g/dl (32.0-36.0); MEAN CELL VOLUME 72.4 fl (80-96); MEAN PLT VOLUME 8.3 fl (7.5-11.1); MONO % 5.8 % (3.8-10.2); NEUT % 68.4 % (42.8-82.8); PLATELET COUNT 282 K/MM3 (134-434); RBC 4.48 M/mm3 (3.60-5.2); WHITE BLOOD COUNT 11.7 K/mm3 (4.0-10.0)
[2017-12-24] MEDS ORDERED: ACETAMINOPHEN 325 MG TABLET (FP) PO ONE (14:02)
[2017-12-24] MEDS ORDERED: ACETAMINOPHEN 325 MG TABLET (FP) ONE (14:09)
[2017-12-24 14:15] LABS: ANISOCYTOSIS 2+; MACROCYTOSIS 1+; PLATELET ESTIMATE NORMAL
== END 2017-12-24 14:13 | disposition home or self-care (01) ==
LOC: JERFT 11:00
DX: O26.899 Other specified pregnancy related conditions, unspecified trimester (principal); O98.819 Other maternal infectious and parasitic diseases complicating pregnancy, unspecified trimester; Z3A.00 Weeks of gestation of pregnancy not specified
CPT/HCPCS: 36415; 76817-TC; 84702; 85025; 87491; 87591; 99281-25

== ENCOUNTER 2018-02-09 09:46 | Emergency (ER) | payer OTHER ==
[2018-02-09 09:55] VITALS: TEMP 98.1; BMI 43.9
--- NOTE | 2018-02-09 10:19 | PDOC ---
History of Present Illness - General History Source: Patient Exam Limitations: No Limitations - History of Present Illness Initial Comments: 02/09/18 10:31 The patient is a 27-year-old female, , 10 wks , with no significant past medical history presents to the emergency department with vaginal spotting. The patient reports vaginal spotting since Wednesday which became concerning earlier today when she passed a reddish blood clot, with the presentation of abdominal cramping and mild vaginal itching, denies dysuria. The patient states she is compliant with vitamins, denies other medication use. Denies hematuria, frequency or urgency to urinate. Denies vaginal discharge. Denies fever chills cough or a headache. Denies shortness of breath or chest pain. LMP 11/13/17 [facility]/OB: Dr. Gwendolyn Borges PCP: Not on staff. Allergies: Penicillins Surgical history: None reported. Social history: Denies hx of smoking, alcohol or recreational drugs use. <Sejal Peralta - Last Filed: 02/09/18 12:44> - General History Source: Patient Exam Limitations: No Limitations <Esperanza Vickers - Last Filed: 02/09/18 13:15> - General Chief Complaint: Vaginal Bleeding Stated Complaint: BLEEDING (12 WKS ) Time Seen by Provider: 02/09/18 10:02 Past History <Sejal Peralta - Last Filed: 02/09/18 12:44> - Past Medical History COPD: No - Suicide/Smoking/Psychosocial Hx Smoking History: Never smoked Have you smoked in the past 12 months: No Hx Alcohol Use: No Drug/Substance Use Hx: No Substance Use Type: None <Esperanza Vickers - Last Filed: 02/09/18 13:15> - Past Medical History Allergies/Adverse Reactions: Allergies Allergy/AdvReac Type Severity Reaction Status Date / Time Penicillins Allergy Verified 02/09/18 09:52 Review of Systems - Review of Systems Able to Perform ROS?: Yes Comments:: 02/09/18 10:31 GENERAL/CONSTITUTIONAL: No fever or chills. No weakness. HEAD, EYES, EARS, NOSE AND THROAT: No change in vision. No ear pain or discharge. No sore throat. CARDIOVASCULAR: No chest pain or shortness of breath. RESPIRATORY: No cough, wheezing, or hemoptysis. GASTROINTESTINAL: (+) abd cramping. No nausea, vomiting, diarrhea or constipation. GENITOURINARY: (+) Vaginal spotting, with clots. Mild vaginal itching. No dysuria, frequency, or change in urination. MUSCULOSKELETAL: No joint or muscle swelling or pain. No neck or back pain. SKIN: No rash NEUROLOGIC: No headache, vertigo, loss of consciousness, or change in strength/ sensation. ENDOCRINE: No increased thirst. No abnormal weight change. HEMATOLOGIC/LYMPHATIC: No anemia, easy bleeding, or history of blood clots. ALLERGIC/IMMUNOLOGIC: No hives or skin allergy. <Sejal Peralta - Last Filed: 02/09/18 12:44> *Physical Exam - Vital Signs Last Vital Signs Temp Pulse Resp BP Pulse Ox 98.1 F 77 18 104/58 98 02/09/18 09:52 02/09/18 09:52 02/09/18 09:52 02/09/18 09:52 02/09/18 09:52 <Sejal Peralta - Last Filed: 02/09/18 12:44> - Vital Signs Last Vital Signs Temp Pulse Resp BP Pulse Ox 98.1 F 77 18 104/58 98 02/09/18 09:52 02/09/18 09:52 02/09/18 09:52 02/09/18 09:52 02/09/18 09:52 - Physical Exam General Appearance: Yes: Appropriately Dressed Neck: positive: Trachea midline Respiratory/Chest: positive: Lungs Clear, Normal Breath Sounds Cardiovascular: positive: Regular Rhythm, Regular Rate, S1, S2 Female Pelvic Exam: positive: normal external exam, cervical os closed, normal adnexa (urinary exam E to do the exam), other (scant white dc in vault. bloody mucous from os, no adnexal tenderness. ) Gastrointestinal/Abdominal: positive: Normal Bowel Sounds, Flat. negative: Tender Musculoskeletal: positive: Normal Inspection. negative: CVA Tenderness, CVA Tenderness (R) Extremity: positive: Normal Capillary Refill, Normal Inspection, Normal Range of Motion Integumentary: positive: Normal Color, Dry, Warm Neurologic: positive: Fully Oriented, Alert, Normal Mood/Affect <Esperanza Vickers - Last Filed: 02/09/18 13:15> ED Treatment Course - LABORATORY CBC & Chemistry Diagram: 02/09/18 10:30 02/09/18 10:35 <Sejal Peralta - Last Filed: 02/09/18 12:44> - LABORATORY CBC & Chemistry Diagram: 02/09/18 10:30 02/09/18 10:35 <BrittanyEsperanza krishnamurthy - Last Filed: 02/09/18 13:15> Medical Decision Making - Medical Decision Making 02/09/18 10:17 27-year-old at about 10 weeks by an LMP of a frontal of this year here today complaining of vaginal spotting and now a small clot. Started 4 days ago has had mild cramping history of ectopic or previous miscarriage pain is mild denies dizziness no urinary complaints On physical exam patient's abdomen is soft nontender pelvic exam notes cervix which is closed there is some white thick Marcie-like discharge in the vaginal vault scant bloody mucus coming from the cervical eyes bimanual exam is nontender no cervical motion tenderness no adnexal masses Differential diagnosis includes threatened AB versus ectopic versus inevitable or incomplete AB. Plan CBC CMP hCG and UA transvaginal ultrasound 02/09/18 13:14 pt labs with o positive blood type. demise on tvus. pt has followup scheduled with dr. borges. dr. borges paged to inform. pt dc with copy of labs and ultrasound. <BrittanyEsperanza krishnamurthy - Last Filed: 02/09/18 13:15> *DC/Admit/Observation/Transfer <Sejal Peralta - Last Filed: 02/09/18 12:44> - Discharge Dispostion Decision to Admit order: No <BrittanyEsperanza krishnamurthy - Last Filed: 02/09/18 13:15> Diagnosis at time of Disposition: demise - Discharge Dispostion Disposition: HOME Condition at time of disposition: Good - Referrals Referrals: Gwendolyn Borges MD [Staff Physician] - - Patient Instructions Printed Discharge Instructions: Dealing With Miscarriage Additional Instructions: your ultrasound today shows a fetus , however is unable to detect any heart activity. This is consistent with demise as explained to you. you will need to follow up with your [facility], Dr Borges . please call to confirm your appointment and possible move your appointment sooner. return for fever, worsening pain or any concerns .you will likley go on to have a miscarriage however few cases your body will not pass the in which you would require a D & C from your [facility].
[2018-02-09 10:45] LABS: URINE APPEARANCE CLEAR; URINE BILIRUBIN NEGATIVE (<2.0 mg/dL); URINE COLOR YELLOW; URINE GLUCOSE (UA) NEGATIVE (NEGATIVE); URINE KETONE 1+ (NEGATIVE); URINE LEUK ESTERASE TRACE (NEGATIVE); URINE NITRITE NEGATIVE (NEGATIVE); URINE PROTEIN NEGATIVE (NEGATIVE); URINE UROBILINOGEN NEGATIVE mg/dL (0.2-1.0)
[2018-02-09 10:46] LABS: BASO % 0.4 % (0-2.0); EOS % 1.5 % (0-4.5); HEMATOCRIT 35.6 % (32.4-45.2); HEMOGLOBIN 11.6 GM/dL (10.7-15.3); LYMPH % 27.3 % (8-40); MCH 24.9 pg (25.7-33.7); MCHC 32.7 g/dl (32.0-36.0); MEAN CELL VOLUME 76.2 fl (80-96); MEAN PLT VOLUME 8.9 fl (7.5-11.1); MONO % 6.1 % (3.8-10.2); NEUT % 64.7 % (42.8-82.8); PLATELET COUNT 279 K/MM3 (134-434); RBC 4.67 M/mm3 (3.60-5.2); RDW 20.1 % (11.6-15.6); WHITE BLOOD COUNT 9.8 K/mm3 (4.0-10.0)
[2018-02-09 10:58] LABS: EPI CELLS MODERATE /HPF (FEW); URINE MUCUS RARE
[2018-02-09 11:08] LABS: ALBUMIN 3.7 g/dl (3.4-5.0); ANION GAP 8 (8-16); BILIRUBIN,TOTAL 0.7 mg/dL (0.2-1.0); BLOOD UREA NITROGEN 8 mg/dL (7-18); CALCIUM 9.1 mg/dL (8.5-10.1); CHLORIDE 102 mmol/L (98-107); CO2 26 mmol/L (21-32); CREATININE 0.7 mg/dL (0.55-1.02); GLUCOSE,RANDOM 86 mg/dL (74-106); POTASSIUM 4.1 mmol/L (3.5-5.1); SGOT/AST 17 U/L (15-37); SGPT/ALT 24 U/L (12-78); SODIUM 136 mmol/L (136-145); TOT PROT 7.5 g/dl (6.4-8.2)
[2018-02-09 11:23] LABS: ALK PHOS 64 U/L (45-117)
[2018-02-09 13:18] VITALS: BP 103/60; PULSE 78
== END 2018-02-09 13:31 | disposition home or self-care (01) ==
LOC: JER 09:46
DX: O26.891 Other specified pregnancy related conditions, first trimester (principal); Z3A.10 10 weeks gestation of pregnancy; O03.9 Complete or unspecified spontaneous abortion without complication
CPT/HCPCS: 36415; 76817-TC; 80053; 81003; 81015; 84702; 85025; 86850; 86900; 86901; 99283-25

== ENCOUNTER 2018-02-14 09:42 | Day surgery (SDC) | payer OTHER ==
[2018-02-11 16:06] VITALS: BMI 44.0
[2018-02-14] MEDS ORDERED: MIDAZOLAM HCL 2 MG/2 ML SINGLE DOSE VIAL ONE (11:02)
[2018-02-14] MEDS ORDERED: ACETAMINOPHEN 325 MG TABLET (FP) PO PRN (11:28)
[2018-02-14] MEDS ORDERED: IBUPROFEN 400 MG TABLET (FP) PO PRN (11:28)
[2018-02-14] MEDS ORDERED: oxyCODONE HCL 5 MG TABLET PO PRN (11:28)
[2018-02-14] MEDS ORDERED: ONDANSETRON 4 MG/2 ML VIAL IVPUSH PRN ×2 (11:29→13:25)
[2018-02-14] MEDS ORDERED: DOXYCYCLINE INJECTION 100 MG in DEXTROSE 5%-WATER - 100 ML IVPB ONE (11:35)
--- NOTE | 2018-02-14 11:36 | HP ---
Admitting History and Physical - Admission History of Present Illness: 27 yo @ 11 6/7 wks by first trimester ultrasound, EDC 08/30/2018 presented with chief complaint of bleeding, s/p ultrasound which revealed an 8 wk sized fetus with no cardiac activity. She denies any additional bleeding or cramping. History Source: Patient Limitations to Obtaining History: No Limitations - Past Medical History Cardiovascular: No: HTN Pulmonary: No: Asthma ...LMP: 11/13/17 ...: 1 ...Para: 0 Heme/Onc: Yes: Other (Thalassemia carrier, normal HgB screen). No: Anemia - Past Surgical History Past Surgical History: Yes: None - Smoking History Smoking history: Never smoked Have you smoked in the past 12 months: No - Alcohol/Substance Use Hx Alcohol Use: Yes (occas) History of Substance Use: reports: None - Social History Usual Living Arrangement: Yes: With Spouse History of Recent Travel: No Home Medications - Allergies Allergies/Adverse Reactions: Allergies Allergy/AdvReac Type Severity Reaction Status Date / Time Penicillins Allergy "rash,sob" Verified 02/11/18 16:06 seafood Allergy "rash,sob" Uncoded 02/11/18 16:06 - Home Medications Home Medications: Ambulatory Orders Acetaminophen [Tylenol] 650 mg PO PRN PRN 02/11/18 Vit No.129/Iron/Folic [ One Daily Tablet] 1 each PO DAILY 02/11 Doxycycline Monohydrate [Monodox] 100 mg PO BID 3 Days #6 capsule 02/14/18 Methylergonovine Maleate [Methergine -] 0.2 mg PO TID #6 tablet MDD 3 02/14/18 Family Disease History - Family Disease History Family History: Denies Review of Systems - Review of Systems Constitutional: reports: No Symptoms Neck: reports: No Symptoms Cardiovascular: reports: No Symptoms Respiratory: reports: No Symptoms Gastrointestinal: reports: No Symptoms Breasts: reports: No Symptoms Reported Musculoskeletal: reports: No Symptoms Neurological: reports: No Symptoms Endocrine: reports: No Symptoms Hematology/Lymphatic: reports: No Symptoms Psychiatric: reports: No Symptoms Physical Examination Vital Signs: Vital Signs Temperature 98.3 F 02/14/18 10:23 Pulse Rate 72 02/14/18 10:23 Respiratory Rate 16 02/14/18 10:23 Blood Pressure 102/58 02/14/18 10:23 O2 Sat by Pulse Oximetry (%) 99 02/14/18 10:19 Constitutional: Yes: Well Nourished, No Distress, Calm HENT: Yes: Atraumatic Cardiovascular: Yes: Regular Rate and Rhythm Respiratory: Yes: Regular, CTA Bilaterally Gastrointestinal: Yes: Normal Bowel Sounds, Soft Neurological: Yes: Alert, Oriented Psychiatric: Yes: Alert, Oriented Imaging - Results Ultrasound: Report Reviewed, Image Reviewed Assessment/Plan 27 yo @ 11 wks by dates; 8 wks by size with missed for dilation and curettage 1. Consents reviewed and signed. Reviewed risks including infection, bleeding requiring transfusion, uterine perforation, uterine scarring resulting in infertility. She expressed understanding, all questions answered 2. SCDs for DVT PPx 3. Doxycycline process controls technician to OR 4. Reviewed postop medications, doxycycline 100 BID x 3 days; methergine .2 mg TID x 2 days 5. Will proceed to OR
[2018-02-14] MEDS ORDERED: DOXYCYCLINE INJECTION 200 MG in DEXTROSE 5%-WATER - 250 ML IVPB ONE (12:00)
[2018-02-14] MEDS ORDERED: DOXYCYCLINE HYCLATE 100 MG VIAL IVPB ONE (12:06)
--- NOTE | 2018-02-14 12:45 | OP ---
Operative Note - Note: Operative Date: 02/14/18 Pre-Operative Diagnosis: Missed at 8 wks size; 11 wks dates Operation: suction dilation and curettage Findings: cervix 1 cm dilated, intrauterine with no FH noted Post-Operative Diagnosis: Same as Pre-op Surgeon: Gwendolyn Borges Anesthesiologist/SHIFT SUPERVISOR FILM PROCESSING: Soy Johnson Anesthesia: General Estimated Blood Loss (mls): 20 Operative Report Dictated: Yes
[2018-02-14] MEDS ORDERED: METHYLERGONOVINE MALEATE 0.2 MG/1 ML AMP IM ONE (12:49)
[2018-02-14] MEDS ORDERED: LACTATED RINGERS SOLUTION 1,000 ML IV SCH (13:30)
[2018-02-14] MEDS ORDERED: ACETAMINOPHEN 325 MG TABLET (FP) ONE (13:48)
[2018-02-14] MEDS ORDERED: oxyCODONE HCL 5 MG TABLET ONE ×2 (13:48→15:19)
[2018-02-14 14:47] VITALS: TEMP 97.4
[2018-02-14] MEDS ORDERED: oxyCODONE HCL 5 MG TABLET PO ONE ×2 (15:19→15:23)
[2018-02-14 16:08] VITALS: BP 110/60; PULSE 67
--- NOTE | 2018-02-14 19:32 | OP ---
DATE OF OPERATION: 02/14/2018 ATTENDING PHYSICIAN RESPONSIBLE FOR SIGNING REPORT: Gwendolyn Borges MD PREOPERATIVE DIAGNOSIS: Missed at 8 weeks. POSTOPERATIVE DIAGNOSIS: Missed at 8 weeks. SURGEON: Gwendolyn Borges MD ANESTHESIA: Soy Booker MD, with Soy Johnson CRNA. INDICATION: Patient is a 27-year-old, G1, P0 at 11 weeks by dates, who is status post ultrasound which revealed a missed at 8 weeks. She was counseled regarding medical and surgical and observation. She decided she opted for surgical management. She was counseled regarding risks, benefits, alternatives, and complications of the procedure including infection: bleeding; damage to surrounding organs such as bowel, bladder, ureters; uterine perforation; scarring leading to infertility. She expressed understanding. She was brought to the operating room. When anesthesia was found to be adequate , patient was prepped and draped in normal sterile fashion and placed in dorsal lithotomy position using Rodríguez stirrups. A Lao retractor was placed in the posterior vagina. The anterior lip of the cervix was grasped using an Allis clamp, and the cervix was noted to be dilated. A size 8 curved suction curette was placed into the uterine cavity. A bedside ultrasound was performed to confirm intrauterine placement. Suction was applied to an operating pressure of approximately 70 mmHg. Three passes were performed. Good amount of tissue was noted. A suction curette, a size 7 curved, was placed with evacuation of additional products. Gentle sharp curetting was performed. All instruments were removed from the patient's vagina. Postoperative bedside ultrasound was performed. A thin endometrial stripe was noted. Patient was awoken from anesthesia, brought to recovery room in stable condition. Mariam [id number] MTDD
--- NOTE | 2018-02-15 16:17 | PATH ---
Surgical Pathology Report Patient Name: MIRA BUNN [facility]. Rec. #: [id number] /Age/Gender: 1990 (Age: 27) / F Account: [id number] Location: [facility] SURGICAL Taken: 02/14/2018 Received: 02/14/2018 Reported: 02/15/2018 Physicians: Gwendolyn Borges Specimen(s) Received PRODUCTS OF CONCEPTION Clinical History Missed Final Diagnosis PRODUCTS OF CONCEPTION, SUCTION DILATION AND CURETTAGE: CHORIONIC VILLI PRESENT, CONSISTENT WITH PRODUCTS OF CONCEPTION. Electronically Signed Ebonie Lackey M.D. Gross Description Received in formalin labeled with "products of conception", are multiple pieces irregular soft tissue admixed with blood clot measuring 8 x 8 x 2 cm in aggregate. Print Designer sections are submitted in one cassette. LENORA/02/14/2018 dinh/02/14/2018
== END 2018-02-14 16:10 | disposition home or self-care (01) ==
LOC: JASU-SURG 09:42 → JOR 09:42 → JASU-SURG 16:10
PROVIDERS: ATTEND Obstetrics & Gynecology
PROC: 10D17ZZ Extraction of Products of Conception, Retained, Via Natural or Artificial Opening (ICD-10-PCS; principal; 2018-02-14 11:00)
DX: O02.1 Missed abortion (principal)
CPT/HCPCS: 88305-TC; 94760

== ENCOUNTER 2018-02-19 18:01 | Observation (INO) | payer OTHER ==
[2018-02-19 18:06] VITALS: BMI 43.9
--- NOTE | 2018-02-19 18:21 | PDOC ---
History of Present Illness - General Chief Complaint: Pain Stated Complaint: ABD PAIN Time Seen by Provider: 02/19/18 18:20 History Source: Patient Exam Limitations: No Limitations - History of Present Illness Initial Comments: 02/19/18 18:22 CHIEF COMPLAINT: Abdominal pain HISTORY OF PRESENT ILLNESS: This is a previously healthy 27-year-old female who is s/p D&C for missed in 8 weeks gestation on 02/14. Following her procedure, she received 3 days of doxycycline 100 mg bid. She presents today with abdominal pain and diarrhea. Vital signs on arrival are notable for pulse 108. REVIEW OF SYSTEMS: GENERAL/CONSTITUTIONAL: No fever or chills. No weakness. No weight change. HEAD, EYES, EARS, NOSE AND THROAT: No change in vision. No ear pain or discharge. No sore throat. CARDIOVASCULAR: No chest pain or palpitations. RESPIRATORY: No cough, wheezing, or shortness of breath. GASTROINTESTINAL: No nausea, vomiting, diarrhea or constipation. GENITOURINARY: No dysuria, frequency, or change in urination. MUSCULOSKELETAL: No joint or muscle swelling or pain. No neck or back pain. SKIN: No rash or easy bruising. NEUROLOGIC: No headache, vertigo, loss of consciousness, or loss of sensation. PSYCHIATRIC: No depression or anxiety. ENDOCRINE: No increased thirst. No abnormal weight change. HEMATOLOGIC/LYMPHATIC: No anemia, easy bleeding, or history of blood clots. ALLERGIC/IMMUNOLOGIC: No hives or skin allergy. No latex allergy. PHYSICAL EXAM: GENERAL: The patient is awake, alert, and fully oriented, in no acute distress. HEAD: Normal with no signs of trauma. ENT: Pupils equal, round and reactive to light, extraocular movements intact, sclera anicteric, conjunctiva clear. Neck supple. LUNGS: Clear to auscultation bilaterally. Normal excursion. No respiratory distress or use of accessory muscles. CV: RRR, S1/S2, no MRG. Cap refill < 2 sec. ABDOMEN: Soft, non-distended, non-tender. EXTREMITIES: Normal range of motion, no edema. NEUROLOGICAL: Normal speech, normal gait. CN II-XII grossly intact. PSYCH: Normal mood, normal affect. SKIN: Warm, dry, normal turgor, no rashes or lesions noted. Past History - Past Medical History Allergies/Adverse Reactions: Allergies Allergy/AdvReac Type Severity Reaction Status Date / Time Penicillins Allergy "rash,sob" Verified 02/19/18 18:06 seafood Allergy "rash,sob" Uncoded 02/19/18 18:06 Home Medications: Ambulatory Orders Acetaminophen [Tylenol] 650 mg PO PRN PRN 02/11/18 Vit No.129/Iron/Folic [ One Daily Tablet] 1 each PO DAILY 02/11 Doxycycline Monohydrate [Monodox] 100 mg PO BID 3 Days #6 capsule 02/14/18 Methylergonovine Maleate [Methergine -] 0.2 mg PO TID #6 tablet MDD 3 02/14/18 Anemia: Yes (sickle cell trait) Asthma: No Cancer: No Cardiac Disorders: No CVA: No COPD: No CHF: No Dementia: No Diabetes: No GI Disorders: Yes (acid reflux) Disorders: No HTN: No Hypercholesterolemia: No Liver Disease: No Seizures: No Thyroid Disease: No - Reproductive History (#): 1 Para: 0 - Suicide/Smoking/Psychosocial Hx Smoking History: Never smoked Have you smoked in the past 12 months: No Hx Alcohol Use: Yes (occas) Drug/Substance Use Hx: No Substance Use Type: Alcohol *Physical Exam - Vital Signs Last Vital Signs Temp Pulse Resp BP Pulse Ox 98 F 108 H 20 108/62 97 02/19/18 18:02 02/19/18 18:02 02/19/18 18:02 02/19/18 18:02 02/19/18 18:02
[2018-02-19] MEDS ORDERED: morphine CARPU-JECT 4 MG/1 ML DISP.SYRIN IVPUSH ONE ×2 (18:53→23:17)
[2018-02-19] MEDS ORDERED: SODIUM CHLORIDE 0.9% 1000 ML INFUS.BAG IV ONE (18:53)
[2018-02-19] MEDS ORDERED: morphine SULFATE 4 MG/ML VIAL ONE ×2 (18:57→23:24)
[2018-02-19 19:16] LABS: BASO % 0.2 % (0-2.0); EOS % 2.4 % (0-4.5); HEMATOCRIT 33.6 % (32.4-45.2); HEMOGLOBIN 11.1 GM/dL (10.7-15.3); LYMPH % 28.8 % (8-40); MCH 25.2 pg (25.7-33.7); MCHC 33.1 g/dl (32.0-36.0); MEAN CELL VOLUME 76.1 fl (80-96); MEAN PLT VOLUME 8.8 fl (7.5-11.1); NEUT % 63.6 % (42.8-82.8); PLATELET COUNT 307 K/MM3 (134-434); RBC 4.41 M/mm3 (3.60-5.2); RDW 19.1 % (11.6-15.6); WHITE BLOOD COUNT 12.8 K/mm3 (4.0-10.0)
[2018-02-19 19:55] LABS: ALBUMIN 3.8 g/dl (3.4-5.0); ALK PHOS 69 U/L (45-117); BILIRUBIN,TOTAL 0.4 mg/dL (0.2-1.0); CALCIUM 9.4 mg/dL (8.5-10.1); CO2 28 mmol/L (21-32); CREATININE 0.8 mg/dL (0.55-1.02); GLUCOSE,RANDOM 83 mg/dL (74-106); SGPT/ALT 26 U/L (12-78); TOT PROT 7.6 g/dl (6.4-8.2)
[2018-02-19 20:01] LABS: ANION GAP 7 (8-16); CHLORIDE 104 mmol/L (98-107); POTASSIUM 4.3 mmol/L (3.5-5.1); SGOT/AST 22 U/L (15-37); SODIUM 139 mmol/L (136-145)
[2018-02-19 20:03] LABS: BLOOD UREA NITROGEN 8 mg/dL (7-18)
--- NOTE | 2018-02-19 20:37 | PDOC ---
History of Present Illness - History of Present Illness Initial Comments: 02/19/18 20:50 Patient is a 27 year old female with a significant past medical history of Thalassemia carrier, normal HgB screen, who presents to the ED with complaints of complaints of diffuse abdominal pain that began earlier this week. Patient reports undergoing D&C for demise on 02/14/[address] Borges. She reports experiencing intermittent vaginal spotting since the procedure. Patient reports experiencing intense superpubic abdominal pain that she states has gradually gotten worse over time, becoming increasingly unbearable his yesterday. She reports calling her PCP regarding the pain who stated the pain was normal, which she states why she did not come into the ED yesterday. Patient reports experiencing associated symptoms of left flank pain, diarrhea, and bleeding that she states is unsure whether came from her rectum or vagina, prompting her to come into the ED for further evaluation. Denies chest pain, Sob, Denies contact with sick individuals, out of state travelling. Denies fevers, chills. Denies constipation, dysuria, hematuria. Denies any other symptoms. Allergies: Penicillin, Seafood Social history: No smoking. No alcohol. No illicit drugs. Surgical history: D&C (01/2019). PMD: None OB: Dr. Borges <Reji Cruz - Last Filed: 02/19/18 20:50> - General History Source: Patient Exam Limitations: No Limitations <Esperanza Vickers - Last Filed: 02/19/18 23:06> - General Chief Complaint: Pain Stated Complaint: ABD PAIN Time Seen by Provider: 02/19/18 18:20 Past History <Reji Cruz - Last Filed: 02/19/18 20:50> - Past Medical History Anemia: Yes (sickle cell trait) Asthma: No Cancer: No Cardiac Disorders: No CVA: No COPD: No CHF: No Dementia: No Diabetes: No GI Disorders: Yes (acid reflux) Disorders: No HTN: No Hypercholesterolemia: No Liver Disease: No Seizures: No Thyroid Disease: No - Reproductive History Is Patient Now?: No (#): 1 Para: 0 Spontaneous : 1 - Suicide/Smoking/Psychosocial Hx Smoking History: Never smoked Have you smoked in the past 12 months: No Information on smoking cessation initiated: No Hx Alcohol Use: Yes (occas) Drug/Substance Use Hx: No Substance Use Type: Alcohol <Esperanza Vickers - Last Filed: 02/19/18 23:06> - Past Medical History Allergies/Adverse Reactions: Allergies Allergy/AdvReac Type Severity Reaction Status Date / Time Penicillins Allergy "rash,sob" Verified 02/19/18 18:06 seafood Allergy "rash,sob" Uncoded 02/19/18 18:06 Home Medications: Ambulatory Orders Acetaminophen [Tylenol] 650 mg PO PRN PRN 02/11/18 Vit No.129/Iron/Folic [ One Daily Tablet] 1 each PO DAILY 02/11 Doxycycline Monohydrate [Monodox] 100 mg PO BID 3 Days #6 capsule 02/14/18 Methylergonovine Maleate [Methergine -] 0.2 mg PO TID #6 tablet MDD 3 02/14/18 *Physical Exam - Vital Signs Last Vital Signs Temp Pulse Resp BP Pulse Ox 97.5 F L 74 20 113/63 99 02/19/18 20:37 02/19/18 20:37 02/19/18 20:37 02/19/18 20:37 02/19/18 20:37 <Reji Cruz - Last Filed: 02/19/18 20:50> - Vital Signs Last Vital Signs Temp Pulse Resp BP Pulse Ox 98 F 108 H 20 108/62 97 02/19/18 18:02 02/19/18 18:02 02/19/18 18:02 02/19/18 18:02 02/19/18 18:50 - Physical Exam General Appearance: Yes: Nourished, Appropriately Dressed Neck: positive: Trachea midline Respiratory/Chest: positive: Lungs Clear, Normal Breath Sounds Cardiovascular: positive: Regular Rhythm, Regular Rate, S1, S2 Gastrointestinal/Abdominal: positive: Normal Bowel Sounds, Tender (supprapubic ttp. no rebound no guarding ) Extremity: positive: Normal Capillary Refill, Normal Inspection Integumentary: positive: Normal Color, Dry, Warm Neurologic: positive: Fully Oriented, Alert, Normal Mood/Affect <Esperanza Vickers - Last Filed: 02/19/18 23:06> ED Treatment Course - LABORATORY CBC & Chemistry Diagram: 02/19/18 18:51 02/19/18 18:51 - ADDITIONAL ORDERS Additional order review: Laboratory Results 02/19/18 18:51 Sodium 139 Potassium 4.3 Chloride 104 Carbon Dioxide 28 Anion Gap 7 L BUN 8 Creatinine 0.8 Creat Clearance w eGFR > 60 Random Glucose 83 Calcium 9.4 Total Bilirubin 0.4 AST 22 ALT 26 Alkaline Phosphatase 69 Total Protein 7.6 Albumin 3.8 02/19/18 18:51 RBC 4.41 MCV 76.1 L MCHC 33.1 RDW 19.1 H MPV 8.8 Neutrophils % 63.6 Lymphocytes % 28.8 Monocytes % 5.0 Eosinophils % 2.4 Basophils % 0.2 - Medications Given in the ED: ED Medications Discontinued Medications Generic Name Dose Route Start Last Admin Trade Name Freq PRN Reason Stop Dose Admin Morphine Sulfate 4 mg 02/19/18 18:53 02/19/18 19:08 Morphine Injection - IVPUSH 02/19/18 18:54 4 mg ONCE ONE Administration Sodium Chloride 1,000 ml 02/19/18 18:53 02/19/18 19:09 Normal Saline - IV 02/19/18 18:54 1,000 ml ONCE ONE Administration <Reji Cruz - Last Filed: 02/19/18 20:50> - LABORATORY CBC & Chemistry Diagram: 02/19/18 18:51 02/19/18 18:51 - ADDITIONAL ORDERS Additional order review: Laboratory Results 02/19/18 18:51 Sodium 139 Potassium 4.3 Chloride 104 Carbon Dioxide 28 Anion Gap 7 L BUN 8 Creatinine 0.8 Creat Clearance w eGFR > 60 Random Glucose 83 Calcium 9.4 Total Bilirubin 0.4 AST 22 ALT 26 Alkaline Phosphatase 69 Total Protein 7.6 Albumin 3.8 02/19/18 18:51 RBC 4.41 MCV 76.1 L MCHC 33.1 RDW 19.1 H MPV 8.8 Neutrophils % 63.6 Lymphocytes % 28.8 Monocytes % 5.0 Eosinophils % 2.4 Basophils % 0.2 - RADIOLOGY Radiology Studies Ordered: Category Date Time Status TRANSVAGINAL ULTRASOUND US [US] Stat Ultrasound 02/19/18 18:52 Ordered - Medications Given in the ED: ED Medications Discontinued Medications Generic Name Dose Route Start Last Admin Trade Name Freq PRN Reason Stop Dose Admin Morphine Sulfate 4 mg 02/19/18 18:53 02/19/18 19:08 Morphine Injection - IVPUSH 02/19/18 18:54 4 mg ONCE ONE Administration Sodium Chloride 1,000 ml 02/19/18 18:53 02/19/18 19:09 Normal Saline - IV 02/19/18 18:54 1,000 ml ONCE ONE Administration <Esperanza Vickers - Last Filed: 02/19/18 23:06> Medical Decision Making - Medical Decision Making 02/19/18 20:29 27 yo F 6 days s/p D &C for demise at 12 weeks, , here c/o suprapubic abd pain. sharp intermittent started yesterday. no assoc f/c no n/v. no urinary complaints. pain worse with sitting. differential endometritis, retained products, uti pyelo, plan tvus. pain control. pending results will consider ct a/p 02/19/18 20:39 <Esperanza Vickers - Last Filed: 02/19/18 23:06> *DC/Admit/Observation/Transfer <Reji Cruz - Last Filed: 02/19/18 20:50> - Discharge Dispostion Decision to Admit order: Yes <Esperanza Vickers - Last Filed: 02/19/18 23:06> Diagnosis at time of Disposition: Retained products of conception
[2018-02-19] MEDS ORDERED: VANCOMYCIN 1,000 MG in DEXTROSE 5%-WATER - 250 ML IVPB ONE (23:01)
[2018-02-19] MEDS ORDERED: GENTAMICIN INJECTION 120 MG in SODIUM CHLORIDE 100 ML IVPB ONE (23:02)
[2018-02-19] MEDS ORDERED: GENTAMICIN INJECTION 120 MG in SODIUM CHLORIDE 250 ML IVPB ONE (23:14)
[2018-02-20] MEDS ORDERED: VANCOMYCIN 1 GRAM (PRE-DOCKED) 1,000 MG/250 ML BAG IVPB ONE (00:55)
[2018-02-20] MEDS ORDERED: DEXTROSE 5%-LACTATED RINGERS 1,000 ML IV SCH (01:20)
[2018-02-20] MEDS ORDERED: CLINDAMYCIN 900 MG PREMIX IVPB 900 MG/50 ML BAG IVPB SCH ×2 (02:00→10:00)
[2018-02-20] MEDS ORDERED: ONDANSETRON 4 MG/2 ML VIAL IVPUSH PRN ×2 (08:13→09:56)
[2018-02-20] MEDS ORDERED: PROMETHAZINE HCL 25 MG/1 ML VIAL IVPUSH PRN (08:13)
[2018-02-20 08:14] LABS: INR 1.03 (0.83-1.09); PROTHROMBIN TIME (PATIENT) 11.6 SEC (9.7-13.0)
[2018-02-20] MEDS ORDERED: LACTATED RINGERS SOLUTION 1,000 ML IV SCH ×2 (08:15→09:56)
[2018-02-20 08:17] LABS: ACTIVATED PTT 31.5 SECONDS (25.2-36.5)
[2018-02-20] MEDS ORDERED: PROPOFOL 20 ML ONE ×2 (08:18)
[2018-02-20] MEDS ORDERED: MIDAZOLAM HCL 2 MG/2 ML SINGLE DOSE VIAL ONE (08:18)
[2018-02-20] MEDS ORDERED: LIDOCAINE HCL/PF 2% SDV 5ML VIAL ONE (08:22)
--- NOTE | 2018-02-20 08:31 | HP ---
Past Medical History - Primary Care Physician PCP:: Bobby Eastman - Admission Chief Complaint: 27yo P0 admitted with postabortal endometritis and possible retained POC after D&C for missed Ab 5-6 days ago History of Present Illness: Pt is s/p D&C for missed Ab at 8wks on 02/14/2018 presents to ER with increased bleeding and pelvic pain. Pt was noted to be afebrile but have leukocytosis. She was admitted by me yesterday and given IV abx. Now the pt feels improvement in pain. She is still bleeding. No fever or chills. 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: Alzheimer's, CVA, Dementia, Migraine, Multiple Sclerosis, Peripheral Neuropathy, Parkinson's, Seizure, Syncope, TIA, Vertigo, Other Cardiovascular: No: AFIB, Aneurysm, Aortic Insufficiency, Aortic Stenosis, CAD, CHF, Deep Vein Thrombosis, HTN, Hyperlipdemia, MS, Mitral Insufficiency, Mitral Stenosis, Murmur, Pulmonary Hypertension, Other Pulmonary: No: Asthma, Bronchitis, Cancer, COPD, O2 Dependent, Pneumonia, Previously Intubated, Pulmonary Embolus, Pulmonary Fibrosis, Sleep Apnea, Other Gastrointestinal: No: Ascites, Cancer, Constipation, Crohn's Disease, Diverticulitis, Diverticulosis, Esophageal Varices, Gastritis, GERD, GI Bleed, Hemorrhoids, Hiatal Hernia, Inflamatory Bowel Disease, Irritable Bowel Disease, Pancreatitis, Peptic Ulcer Disease, Ulcerative Colitis, Other Hepatobiliary: No: Cirrhosis, Cholelithiasis, Cholecystitis, Choledocholithiasis , Hepatitis A, Hepatitis B, Hepatitis C, Other Renal/: No: Renal Failure, Renal Inusuff, BPH, Cancer, Hematuria, Hemodialysis , Neurogenic Bladder, Renal Calculi, UTI, Other Reproductive: Yes: Fibroids ...: 1 ...Para: 0 ...Term: 0 ...: 0 ...Spon : 1 ...Induced : 0 Heme/Onc: Yes: Other (Thalassemia carrier, normal HgB screen). No: Anemia Infectious Disease: No: AIDS, C-Diff, Herpes Zoster, HIV, MRSA, STD's, Tuberculosis, VREF, Other Psych: No: Addictions, Anxiety, Bipolar, Depression, Panic, Psychosis, Schizophrenia, Other Musculoskeletal: No: Bursitis, Chronic low back pain, Hemiparesis, Hemiplegia, Osteoarthritis, Paraplegia, Other Rheumatology: No: Fibromyalgia, Gout, Lupus, Rheumatoid Arthritis, Sarcoidosis, Vasculitis, Other ENT: No: Allergic Rhinitis, Sinusitis, Other Endocrine: No: Pondera's Disease, Jimena's Disease, Diabetes Insipidus, Diabetes Mellitus, Hyperparathyroidism, Hyperthyroidism, Hypothyroidism, Osteopenia, SIADH, Other Dermatology: No: Basal Cell, Cellulitis, Eczema, Melanoma, Psoriasis, Squamous Cell, Other - Past Surgical History Past Surgical History: Yes: None Hx Myomectomy: No Hx Transabdominal Cerclage: No Additional Surgical History: D&C on 02/14/2018 - Smoking History Smoking history: Never smoked Have you smoked in the past 12 months: No - Alcohol/Substance Use Hx Alcohol Use: Yes (social) History of Substance Use: reports: None - Social History ADL: Independent History of Recent Travel: No Home Medications - Allergies Allergies/Adverse Reactions: Allergies Allergy/AdvReac Type Severity Reaction Status Date / Time Penicillins Allergy "rash,sob" Verified 02/19/18 18:06 seafood Allergy "rash,sob" Uncoded 02/19/18 18:06 - Home Medications Home Medications: Ambulatory Orders Acetaminophen [Tylenol] 650 mg PO PRN PRN 02/11/18 Vit No.129/Iron/Folic [ One Daily Tablet] 1 each PO DAILY 02/11 Doxycycline Monohydrate [Monodox] 100 mg PO BID 3 Days #6 capsule 02/14/18 Methylergonovine Maleate [Methergine -] 0.2 mg PO TID #6 tablet MDD 3 02/14/18 Family Disease History - Family Disease History Family History: Denies Review of Systems - Review of Systems Constitutional: reports: Malaise Eyes: reports: No Symptoms HENT: reports: No Symptoms Neck: reports: No Symptoms Cardiovascular: reports: No Symptoms Respiratory: reports: No Symptoms Gastrointestinal: reports: Abdominal Pain Genitourinary: reports: Vaginal Bleeding Breasts: reports: No Symptoms Reported Musculoskeletal: reports: No Symptoms Integumentary: reports: No Symptoms Neurological: reports: No Symptoms Endocrine: reports: No Symptoms Hematology/Lymphatic: reports: No Symptoms Psychiatric: reports: No Symptoms Pain Intensity: 8 (improved today) 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 Vital Signs: Vital Signs Temperature 97.7 F 02/20/18 07:50 Pulse Rate 64 02/20/18 07:50 Respiratory Rate 20 02/20/18 07:50 Blood Pressure 104/54 02/20/18 07:50 O2 Sat by Pulse Oximetry (%) 100 02/20/18 02:00 Constitutional: Yes: No Distress, Calm, Obese Eyes: Yes: WNL, Conjunctiva Clear HENT: Yes: WNL, Atraumatic, Normocephalic Neck: Yes: WNL, Supple, Trachea Midline Cardiovascular: Yes: WNL, Regular Rate and Rhythm Respiratory: Yes: WNL, Regular, CTA Bilaterally Gastrointestinal: Yes: WNL ...Rectal Exam: Yes: Deferred Renal/: Yes: Vaginal Bleeding External Genitalia: Yes: Normal Internal Exam Deferred: No Vaginal Exam: Yes: Bleeding Cervix: Yes: Bleeding Uterus: Yes: Freely Moveable, Enlarged, Tender Adnexa: Normal: Left, Right Musculoskeletal: Yes: WNL Extremities: Yes: WNL Edema: No Neurological: Yes: WNL, Alert, Oriented ...Motor Strength: WNL Psychiatric: Yes: WNL, Alert, Oriented Labs: CBC, BMP 02/19/18 18:51 02/19/18 18:51 Imaging - Results Ultrasound: Image Reviewed (technically limited study, fibroids noted- including submucosal myoma, thickened EE.) Assessment/Plan 27yo P0 admitted with postabortal endometritis and possible retained POC after D &C for missed Ab 5-6 days ago. Pt with heavy vaginal bleeding. She was given abx overnight and sx's improved. Plan to proceed with Suction, D&C. We had a long discussion about the risks, benefits, and alternatives of surgery. I explained the risks of infection, bleeding, scarring, amenorrhea, Asherman's syndrome, infertility, perforation, need for additional surgery to treat any complications, etc. The pt declined expectant management or prostaglandin indx. She requested to proceed with surgery.
[2018-02-20] MEDS ORDERED: DEXAMETHASONE SOD PHOSPHATE 4 MG/1 ML VIAL ONE (08:40)
[2018-02-20] MEDS ORDERED: ONDANSETRON 4 MG/2 ML VIAL ONE (08:40)
[2018-02-20] MEDS ORDERED: KETOROLAC TROMETHAMINE 30 MG/1 ML VIAL ONE (08:45)
[2018-02-20] MEDS ORDERED: GENTAMICIN SO4 80 MG/2 ML VIAL ONE (09:09)
[2018-02-20] MEDS ORDERED: GENTAMICIN 80MG PREMIX BAG IVPB ONE (09:15)
[2018-02-20] MEDS ORDERED: GENTAMICIN SO4 80 MG/2 ML VIAL IVPB ONE (09:15)
--- NOTE | 2018-02-20 09:17 | OP ---
Operative Note - Note: Operative Date: 02/20/18 Pre-Operative Diagnosis: Endometritis, retained POC Operation: Suction, D&C Findings: Enlarged uterus, open cervical os, mild bleeding, small amount of tissue/clots Post-Operative Diagnosis: Same as Pre-op Surgeon: Bobby Eastman Anesthesiologist/STRUCTURAL DRAFTSMAN: Cipriano Servin Anesthesia: General Specimens Removed: POC/clots Estimated Blood Loss (mls): 3 Blood Volume Replaced (mls): 0 Fluid Volume Replaced (mls): 200 Operative Report Dictated: Yes
[2018-02-20] MEDS ORDERED: PATIENT'S OWN MEDICATION (NON-FORMULARY) (Acetaminophen [Tylenol] 650 MG) PO PRN (09:56)
[2018-02-20] MEDS ORDERED: ACETAMINOPHEN 325 MG TABLET (FP) PO PRN (10:17)
[2018-02-20] MEDS ORDERED: IBUPROFEN 600 MG TABLET (FP) PO PRN (10:17)
[2018-02-20] MEDS ORDERED: GENTAMICIN INJECTION 120 MG in DEXTROSE 5%-WATER - 250 ML IVPB SCH (11:00)
[2018-02-20] MEDS ORDERED: VANCOMYCIN 1 GM PREMIX - 1 GM/200 ML BAG IVPB ONE (11:00)
--- NOTE | 2018-02-20 12:38 | OP ---
DATE OF OPERATION: 02/20/2018 PREOPERATIVE DIAGNOSIS: Endometritis, retained products of conception. POSTOPERATIVE DIAGNOSIS: Endometritis, retained products of conception. PROCEDURE: Suction dilatation and curettage. SURGEON: Bobby Eastman MD ANESTHESIOLOGIST: Angel Servin MD ANESTHESIA: General. COMPLICATIONS: None. INTRAVENOUS FLUIDS: 200 mL Crystalloid. ESTIMATED BLOOD LOSS: Less than 5 mL. PATHOLOGY: Intrauterine curettings, products of conception. FINDINGS: Examination under anesthesia revealed a slightly enlarged uterus, the cervical os open with mild vaginal bleeding, a small amount of tissue on suction dilatation and curettage. No retained products of conception at the end of procedure. DESCRIPTION OF PROCEDURE: The patient was met preoperatively. Risks, benefits and alternatives of surgery were discussed in detail. All questions were answered. The consent form was reviewed and signed. The patient was brought to the OR with IV running. She was placed on the surgical table in supine position. The general anesthesia was achieved without difficulty. The patient was placed in a dorsal lithotomy position using adjustable Rodríguez stirrups. The patient was examined under anesthesia with the findings as described above. The patient was then prepped and draped in the usual sterile fashion. A timeout procedure was conducted as per standard protocol. A sterile speculum was the introduced inside the vagina with good visualization of the cervix. The anterior cervical lip was grasped with a single-toothed tenaculum. The cervical os did not need to be dilated. A 7-mm suction curet was introduced inside the uterine cavity. Suction curettage was performed without complications. A sharp curet was then used to explore the uterus and assure no retained tissue. No retained products of conception were noted. All of the instruments were removed. Sponge, lap and needle counts were correct. Good hemostasis was confirmed. The patient was then returned to supine position. The patient was transferred to recovery room in stable condition and awake. Mariam [id number]
[2018-02-20 14:02] VITALS: BP 98/66; PULSE 68; TEMP 98.8
== END 2018-02-20 14:55 | disposition home or self-care (01) ==
LOC: JER 18:01 → JERBED 23:06 → J3W 02-20 01:50
PROVIDERS: ADMIT Obstetrics & Gynecology; ATTEND Obstetrics & Gynecology
PROC: 0UDB7ZZ Extraction of Endometrium, Via Natural or Artificial Opening (ICD-10-PCS; principal; 2018-02-19)
PROC: 3E03329 Introduction of Other Anti-infective into Peripheral Vein, Percutaneous Approach (ICD-10-PCS; 2018-02-19)
PROC: 3E033GC Introduction of Other Therapeutic Substance into Peripheral Vein, Percutaneous Approach (ICD-10-PCS; 2018-02-19)
PROC: 3E0337Z Introduction of Electrolytic and Water Balance Substance into Peripheral Vein, Percutaneous Approach (ICD-10-PCS; 2018-02-19)
DX: O03.5 Genital tract and pelvic infection following complete or unspecified spontaneous abortion (principal); O73.1 Retained portions of placenta and membranes, without hemorrhage; R10.30 Lower abdominal pain, unspecified
CPT/HCPCS: 36415; 76830-TC; 80053; 85025; 85610; 85730; 86850; 86900; 86901; 99284-25; G0378; J7030

== ENCOUNTER 2018-05-23 22:37 | Emergency (ER) | payer OTHER ==
[2018-05-23 22:42] VITALS: BP 114/67; PULSE 84; TEMP 98.2; BMI 44.4
[2018-05-23 23:37] LABS: BASO % 0.3 % (0-2.0); EOS % 0.6 % (0-4.5); HEMATOCRIT 33.2 % (32.4-45.2); HEMOGLOBIN 11.1 GM/dL (10.7-15.3); LYMPH % 17.9 % (8-40); MCH 25.7 pg (25.7-33.7); MCHC 33.6 g/dl (32.0-36.0); MEAN CELL VOLUME 76.6 fl (80-96); MEAN PLT VOLUME 8.8 fl (7.5-11.1); MONO % 6.4 % (3.8-10.2); NEUT % 74.8 % (42.8-82.8); PLATELET COUNT 278 K/MM3 (134-434); RBC 4.33 M/mm3 (3.60-5.2); RDW 18.3 % (11.6-15.6); WHITE BLOOD COUNT 12.9 K/mm3 (4.0-10.0)
[2018-05-23 23:53] LABS: URINE APPEARANCE CLOUDY; URINE BILIRUBIN NEGATIVE (<2.0 mg/dL); URINE COLOR LTYELLOW; URINE GLUCOSE (UA) NEGATIVE (NEGATIVE); URINE KETONE NEGATIVE (NEGATIVE); URINE LEUK ESTERASE 3+ (NEGATIVE); URINE NITRITE NEGATIVE (NEGATIVE); URINE PROTEIN NEGATIVE (NEGATIVE); URINE UROBILINOGEN NEGATIVE mg/dL (0.2-1.0)
--- NOTE | 2018-05-23 23:53 | PDOC ---
History of Present Illness - General Chief Complaint: Vaginal Bleeding Stated Complaint: 8 WEEKS PREGANT, ABD PAIN, BLEEDING Time Seen by Provider: 05/23/18 23:10 History Source: Patient Exam Limitations: No Limitations - History of Present Illness Travel History: No Initial Comments: 05/24/18 00:10 Best Contact: PCP:Dr. Castaneda/ Dr. Borges (OB)[facility] Pmhx:0 Pshx:02/2018: D&C x2 (2nd time due to infection from the 1st time) Allergies:PCN/rash FH:0 Social Hx: Cigarettes/ 0 Alcohol/ 0 Drugs/0 LMP: 03/13/2018 27-year-old female presents to the emergency department complaining of mid suprapubic pelvic dull nonradiating intermittent discomfort since February 2018. Patient states the pain comes and goes and with a is 5/10 in its intensity. Patient states she noticed a quarter size blood clot at approximately 1800 hrs. this evening. There are no alleviating or exacerbating factors. Patient denies fever, chills, nausea/vomiting, headache, dizziness, lightheadedness, neck pain/ stiffness, back pains, chest pain, shortness of breath, flank pains, urinary symptoms: Frequency/urgency/hesitancy, hematuria. Past History - Past Medical History Allergies/Adverse Reactions: Allergies Allergy/AdvReac Type Severity Reaction Status Date / Time Penicillins Allergy "rash,sob" Verified 05/23/18 22:42 seafood Allergy "rash,sob" Uncoded 05/23/18 22:42 Home Medications: Ambulatory Orders Acetaminophen [Tylenol] 650 mg PO PRN PRN 02/11/18 Vit No.129/Iron/Folic [ One Daily Tablet] 1 each PO DAILY 02/11 Doxycycline Monohydrate [Monodox] 100 mg PO BID 3 Days #6 capsule 02/14/18 Methylergonovine Maleate [Methergine -] 0.2 mg PO TID #6 tablet MDD 3 02/14/18 metroNIDAZOLE [Flagyl -] 500 mg PO BID #14 tablet 02/20/18 Nitrofurantoin Monohyd/M-Cryst [Macrobid -] 100 mg PO BID #14 capsule 05/24/18 Anemia: Yes (sickle cell trait) Asthma: No Cancer: No Cardiac Disorders: No CVA: No COPD: No CHF: No Dementia: No Diabetes: No GI Disorders: Yes (acid reflux) Disorders: No HTN: No Hypercholesterolemia: No Liver Disease: No Seizures: No Thyroid Disease: No - Reproductive History (#): 1 Para: 0 Spontaneous : 1 - Suicide/Smoking/Psychosocial Hx Smoking History: Never smoked Have you smoked in the past 12 months: No Hx Alcohol Use: Yes (social) Drug/Substance Use Hx: No Substance Use Type: Alcohol Review of Systems - Review of Systems Able to Perform ROS?: Yes Comments:: 05/24/18 00:18 CONSTITUTIONAL: Absent: fever, chills, diaphoresis, generalized weakness, malaise, loss of appetite HEENT: Absent: rhinorrhea, nasal congestion, throat pain, throat swelling, difficulty swallowing, mouth swelling, ear pain, eye pain, visual Changes CARDIOVASCULAR: Absent: chest pain, loss of consciousness, palpitations, irregular heart rate, peripheral edema RESPIRATORY: Absent: cough, shortness of breath, dyspnea with exertion, orthopnea, wheezing, stridor, hemoptysis GASTROINTESTINAL: Absent: abdominal pain, abdominal distension, nausea, vomiting, diarrhea, constipation, melena, hematochezia GENITOURINARY: +mid suprapubic pain, blood clot x1 Absent: dysuria, frequency, urgency, hesitancy, hematuria, flank pain, genital pain MUSCULOSKELETAL: Absent: myalgia, arthralgia, joint swelling SKIN: Absent: rash, itching, pallor HEMATOLOGIC/IMMUNOLOGIC: Absent: easy bleeding, easy bruising, lymphadenopathy, frequent infections ENDOCRINE: Absent: unexplained weight gain, unexplained weight loss, heat intolerance, cold intolerance NEUROLOGIC: Absent: headache, focal weakness or paresthesias, dizziness, unsteady gait, seizure, mental status changes, bladder or bowel incontinence PSYCHIATRIC: Absent: anxiety, depression, suicidal or homicidal ideation, hallucinations. Is the patient limited Welsh proficient: No *Physical Exam - Vital Signs Last Vital Signs Temp Pulse Resp BP Pulse Ox 98.2 F 84 18 114/67 99 05/23/18 22:41 05/23/18 22:41 05/23/18 22:41 05/23/18 22:41 05/23/18 22:41 - Physical Exam Comments: 05/24/18 00:18 GENERAL: Well developed, well nourished. Awake and alert. No acute distress. HEENT: Normocephalic, atraumatic. PERRLA, EOMI. No conjunctival pallor. Sclera are non- icteric. Moist mucous membranes. Oropharynx is clear. NECK: Supple. Full ROM. No JVD. Carotid pulses 2+ and symmetric, without bruits. No thyromegaly. No lymphadenopathy. CARDIOVASCULAR: Regular rate and rhythm. No murmurs, rubs, or gallops. Distal pulses are 2+ and symmetric. PULMONARY: No evidence of respiratory distress. Lungs clear to auscultation bilaterally. No wheezing, rales or rhonchi. ABDOMINAL: Soft. Non-tender. Non-distended. No rebound or guarding. No organomegaly. Normoactive bowel sounds. MUSCULOSKELETAL Normal range of motion at all joints. No bony deformities or tenderness. No CVA tenderness. EXTREMITIES: No cyanosis. No clubbing. No edema. No calf tenderness. SKIN: Warm and dry. Normal capillary refill. No rashes. No jaundice. Pelvic: External genitalia normal without lesions. Vaginal vault is clear without blood or discharge. Cervix is long and closed. ED Treatment Course - LABORATORY CBC & Chemistry Diagram: 05/23/18 23:15 05/23/18 23:15 - ADDITIONAL ORDERS Additional order review: 05/23/18 23:15 RBC 4.33 MCV 76.6 L MCHC 33.6 RDW 18.3 H MPV 8.8 Neutrophils % 74.8 Lymphocytes % 17.9 D Monocytes % 6.4 Eosinophils % 0.6 Basophils % 0.3 - RADIOLOGY Radiology Studies Ordered: Category Date Time Status TRANSVAGINAL US PREG [US] Stat Ultrasound 05/23/18 22:57 Ordered Radiograph Interpretation: 05/24/18 00:19 Transvaginal US; Live IUP with estimated age of 8 weeks and 1 day. 4.4 cm fibroid demonstrates mass effect on the gestational sac. Progress Note - Progress Note Progress Note: 0136hrs: Patient refuses to wait for me to call OB adult education teacher to discuss the preliminary transvaginal ultrasound which shows a 4.4 cm fibroid which demonstrates mass effect on the gestational sac. Patient states she will follow- up with her sample collector this week. *DC/Admit/Observation/Transfer Diagnosis at time of Disposition: UTI (urinary tract infection) Qualifiers: Urinary tract infection type: acute cystitis Hematuria presence: without hematuria Qualified Code(s): N30.00 - Acute cystitis without hematuria - Discharge Dispostion Disposition: HOME Condition at time of disposition: Stable Decision to Admit order: No - Prescriptions Prescriptions: Nitrofurantoin Monohyd/M-Cryst [Macrobid -] 100 mg PO BID #14 capsule - Referrals Referrals: Murtaza Downey MD [Primary Care Provider] - - Patient Instructions Printed Discharge Instructions: DI for Urinary Tract Infection (UTI) Additional Instructions: Increase fluids Take your antibiotics until completion Follow up with your physician within 2 days Return to the ER for severe/persistent/worsening symptoms You had a transvaginal ultrasound while in the emergency department this evening. The preliminary results shows there is a live intrauterine with estimated age of 8 weeks and 1 day. There is a 4.4 cm fibroid which demonstrates mass effect on the gestational sac. It is very important that you follow up with your sample collector. You have been given a preliminary copy of your ultrasound report. Please give that your sample collector. - Post Discharge Activity
[2018-05-24 00:23] LABS: ALBUMIN 3.6 g/dl (3.4-5.0); ALK PHOS 63 U/L (45-117); ANION GAP 7 MMOL/L (8-16); BILIRUBIN,TOTAL 0.3 mg/dL (0.2-1); BLOOD UREA NITROGEN 11 mg/dL (7-18); CALCIUM 9.3 mg/dL (8.5-10.1); CHLORIDE 104 mmol/L (98-107); CO2 27 mmol/L (21-32); CREATININE 0.7 mg/dL (0.55-1.3); GLUCOSE,RANDOM 81 mg/dL (74-106); POTASSIUM 3.9 mmol/L (3.5-5.1); SGOT/AST 18 U/L (15-37); SGPT/ALT 24 U/L (13-61); SODIUM 138 mmol/L (136-145); TOT PROT 7.3 g/dl (6.4-8.2)
[2018-05-24 00:25] LABS: EPI CELLS MANY /HPF (FEW); URINE BACTERIA RARE /hpf (NONE SEEN); YEAST RARE
[2018-05-24] MEDS ORDERED: NITROFURANTOIN MACROCRYSTAL 50 MG CAPSULE (FP) PO SCH (01:00)
== END 2018-05-24 02:10 | disposition home or self-care (01) ==
LOC: JERFT 22:37 → JER 22:37 → JERFT 05-24 02:10
DX: O26.891 Other specified pregnancy related conditions, first trimester (principal); N30.00 Acute cystitis without hematuria; O99.011 Anemia complicating pregnancy, first trimester; D57.3 Sickle-cell trait; Z3A.08 8 weeks gestation of pregnancy
CPT/HCPCS: 36415; 76801-TC; 80053; 81003; 81015; 84702; 85025; 86850; 86900; 86901; 99281-25

== ENCOUNTER 2018-06-16 17:38 | Emergency (ER) | payer OTHER ==
[2018-06-16 17:54] VITALS: BP 108/69; PULSE 85; TEMP 98.6; BMI 43.7
--- NOTE | 2018-06-16 17:56 | PDOC ---
Rapid Medical Evaluation Chief Complaint: Vaginal Sxs Time Seen by Provider: 06/16/18 17:54 Medical Evaluation: Allergies Allergy/AdvReac Type Severity Reaction Status Date / Time Penicillins Allergy "rash,sob" Verified 06/16/18 17:50 seafood Allergy "rash,sob" Uncoded 06/16/18 17:50 06/16/18 17:54 I have performed a brief in person evaluation of this patient. The patient presents with chief complaint of : pt LMP 9/5 @ 12wks presenting with vaginal bleeding Pertinent PE findings: A&O x 3 I have ordered the following: CBC,CMP, beta hcg, pelvic us The patient will proceed to the ER for further evaluation. Discharge Disposition - Diagnosis Vagina bleeding - Referrals Referrals: Murtaza Downey MD [Primary Care Provider] - - Patient Instructions - Post Discharge Activity
--- NOTE | 2018-06-16 18:27 | PDOC ---
History of Present Illness - General Chief Complaint: Vaginal Sxs Stated Complaint: VAGINAL BLEEDING/12 WKS Time Seen by Provider: 06/16/18 17:54 History Source: Patient Exam Limitations: No Limitations - History of Present Illness Initial Comments: 06/16/18 18:41 27 year old female with no PMH A1 12 weeks presented to ED for vaginal bleeding since 1600 today. She stated she has bled through one pad, positive clots. She admitted to suprapubic cramping and nausea. She denied fever , chills, vomiting, diarrhea, chest pain, shortness of breath. She was seen by her OB Dr. Eastman today, normal evaluation, normal transabdominal ultrasound, was sent home. PCP: Dr. Downey Allergies: penicillin, rash Past History - Past Medical History Allergies/Adverse Reactions: Allergies Allergy/AdvReac Type Severity Reaction Status Date / Time Penicillins Allergy "rash,sob" Verified 06/16/18 17:50 seafood Allergy "rash,sob" Uncoded 06/16/18 17:50 Home Medications: Ambulatory Orders Acetaminophen [Tylenol] 650 mg PO PRN PRN 02/11/18 Vit No.129/Iron/Folic [ One Daily Tablet] 1 each PO DAILY 02/11 Doxycycline Monohydrate [Monodox] 100 mg PO BID 3 Days #6 capsule 02/14/18 Methylergonovine Maleate [Methergine -] 0.2 mg PO TID #6 tablet MDD 3 02/14/18 metroNIDAZOLE [Flagyl -] 500 mg PO BID #14 tablet 02/20/18 Nitrofurantoin Monohyd/M-Cryst [Macrobid -] 100 mg PO BID #14 capsule 05/24/18 Nitrofurantoin Monohyd/M-Cryst [Macrobid -] 100 mg PO BID #14 capsule 06/16/18 Anemia: Yes (sickle cell trait) Asthma: No Cancer: No Cardiac Disorders: No CVA: No COPD: No CHF: No Dementia: No Diabetes: No GI Disorders: Yes (acid reflux) Disorders: No HTN: No Hypercholesterolemia: No Liver Disease: No Seizures: No Thyroid Disease: No - Reproductive History (#): 1 Para: 0 Spontaneous : 1 - Immunization History Immunization Up to Date: Yes - Suicide/Smoking/Psychosocial Hx Smoking History: Never smoked Have you smoked in the past 12 months: No Hx Alcohol Use: No Drug/Substance Use Hx: No Substance Use Type: Alcohol Review of Systems - Review of Systems Able to Perform ROS?: Yes Comments:: 06/16/18 18:43 General: denied fever, chills, generalized weakness. HEENT: denied sore throat, rhinorrhea, ear pain. Heart: denied chest pain, palpitations, shortness of breath, lower extremity swelling. Respiratory: denied shortness of breath, cough. Abdomen: admitted to abdominal pain, nausea. denied vomiting, diarrhea. : admitted to vaginal bleeding. denied vaginal discharge, dysuria, increased urinary frequency, hematuria. Back: denied back pain. Musculoskeletal: denied joint pain, muscle pain. Neurological: denied headache, dizziness, numbness, tingling. Skin: denied rash, laceration, abrasion. *Physical Exam - Vital Signs Last Vital Signs Temp Pulse Resp BP Pulse Ox 98.6 F 85 16 108/69 100 06/16/18 17:51 06/16/18 17:51 06/16/18 17:51 06/16/18 17:51 06/16/18 17:51 - Physical Exam Comments: 06/16/18 18:45 Constitutional: well developed, well nourished, appearing stated age. HEENT: head NAAT. EOMI. PEERLA. Neck: supple. full ROM. Heart: regular rhythm. no murmurs. Lungs: clear to auscultation bilaterally. Abdomen: soft, flat, suprapubic tenderness to palpation. no guarding. no rebound. Pelvic: normal external genitalia. scant blood in vaginal vault, no pooling. friable cervix. external os closed. no CMT. no adnexal tenderness. Extremities: peripheral pulses intact. no lower extremity edema. Back: no CVA tenderness bilaterally. Neurological: CN2-12 grossly intact. moves all four extremities. Psych: awake, alert, orientedx3, follows commands, answers questions appropriately. Moderate Sedation - Procedure Monitoring Vital Signs: Procedure Monitoring Vital Signs Temperature 98.6 F 06/16/18 17:51 Pulse Rate 85 06/16/18 17:51 Respiratory Rate 16 06/16/18 17:51 Blood Pressure 108/69 06/16/18 17:51 O2 Sat by Pulse Oximetry (%) 100 06/16/18 17:51 ED Treatment Course - LABORATORY CBC & Chemistry Diagram: 11/29/18 18:48 06/16/18 18:48 Medical Decision Making - Medical Decision Making 06/16/18 18:46 27 year old female with no PMH A1 12 weeks presented to ED for vaginal bleeding since 1600 today. Initial Vital Signs Temp Pulse Resp BP Pulse Ox 98.6 F 85 16 108/69 100 06/16/18 17:51 06/16/18 17:51 06/16/18 17:51 06/16/18 17:51 06/16/18 17:51 Afebrile. No tachycardia. No tachypnea. No hypotension. No hypoxia on room air. Pending TVUS for evaluation of viable uterine . Pending T/S, CBC, CMP, beta quant. 06/16/18 19:56 CBC WBC 9.0 K/mm3 (4.0-10.0) 06/16/18 18:48 RBC 4.58 M/mm3 (3.60-5.2) 06/16/18 18:48 Hgb 12.1 GM/dL (10.7-15.3) 06/16/18 18:48 Hct 35.2 % (32.4-45.2) 06/16/18 18:48 MCV 76.9 fl (80-96) L 06/16/18 18:48 MCH 26.4 pg (25.7-33.7) 06/16/18 18:48 MCHC 34.4 g/dl (32.0-36.0) 06/16/18 18:48 RDW 18.8 % (11.6-15.6) H 06/16/18 18:48 Plt Count 251 K/MM3 (134-434) 06/16/18 18:48 MPV 9.1 fl (7.5-11.1) 06/16/18 18:48 Absolute Neuts (auto) 5.4 K/mm3 (1.5-8.0) 06/16/18 18:48 Neutrophils % 59.4 % (42.8-82.8) D 06/16/18 18:48 Lymphocytes % 29.4 % (8-40) D 06/16/18 18:48 Monocytes % 7.7 % (3.8-10.2) 06/16/18 18:48 Eosinophils % 3.1 % (0-4.5) D 06/16/18 18:48 Basophils % 0.4 % (0-2.0) 06/16/18 18:48 Nucleated RBC % 0 % (0-0) 06/16/18 18:48 No leukocytosis. No anemia. Urine Test Results Urine Color Yellow 06/16/18 19:02 Urine Appearance Cloudy 06/16/18 19:02 Urine pH 6.0 (5.0-8.0) 06/16/18 19:02 Ur Specific [place] 1.009 (1.010-1.035) L 06/16/18 19:02 Urine Protein Negative (NEGATIVE) 06/16/18 19: Urine Glucose (UA) Negative (NEGATIVE) 06/16/18 19: Urine Ketones Negative (NEGATIVE) 06/16/18 19: Urine Blood 3+ (NEGATIVE) H 06/16/18 19:02 Urine Nitrite Negative (NEGATIVE) 06/16/18 19: Urine Bilirubin Negative (<2.0 mg/dL) 06/16/18 19:02 Ur Leukocyte Esterase 3+ (NEGATIVE) H 06/16/18 19:02 Ur Epithelial Cells Moderate /HPF (FEW) 06/16/18 19:02 Urine Bacteria Few /hpf (NONE SEEN) 06/16/18 19:02 Urine Mucus Rare 06/16/18 19:02 WBC>5 Evidence of UTI. 3+ blood, pt currently has vaginal bleeding. - PCN allergic - Macrobid ordered 06/16/18 20:46 CMP Sodium 137 mmol/L (136-145) 06/16/18 18:48 Potassium 4.0 mmol/L (3.5-5.1) 06/16/18 18:48 Chloride 104 mmol/L (98-107) 06/16/18 18:48 Carbon Dioxide 22 mmol/L (21-32) 06/16/18 18:48 Anion Gap 10 MMOL/L (8-16) 06/16/18 18:48 BUN 8 mg/dL (7-18) 06/16/18 18:48 Creatinine 0.6 mg/dL (0.55-1.3) 06/16/18 18:48 Creat Clearance w eGFR > 60 (>60) 06/16/18 18:48 Random Glucose 77 mg/dL (74-106) 06/16/18 18:48 Calcium 9.4 mg/dL (8.5-10.1) 06/16/18 18:48 Total Bilirubin 0.3 mg/dL (0.2-1) 06/16/18 18:48 AST 21 U/L (15-37) 06/16/18 18:48 ALT 30 U/L (13-61) 06/16/18 18:48 Alkaline Phosphatase 72 U/L (45-117) 06/16/18 18:48 Total Protein 7.4 g/dl (6.4-8.2) 06/16/18 18:48 Albumin 3.6 g/dl (3.4-5.0) 06/16/18 18:48 TVUS: viable intrauterine at 11 weeks 2 days. heart rate 150. several uterine lesions probably representing leiomyomas. Blood type: O+ - No need for Rhogam Pt to be discharged with instructions to follow up in 2 days. Will be discharged with Macrobid prescription. Pending Beta. 06/16/18 22:15 Lab called multiple times for beta quant result. Pt to be discharged, will place follow up note to be called for results. Pt informed to return to ED in 48 hours and follow up with her OBGYN by Wednesday. Pt will be discharged with macrobid prescription. 06/16/18 23:43 Lab called, they stated the beta is higher than 40,000 and that this is difficult for their machine to interpret. *DC/Admit/Observation/Transfer Diagnosis at time of Disposition: Vagina bleeding - Discharge Dispostion Disposition: HOME Condition at time of disposition: Stable Decision to Admit order: No - Prescriptions Prescriptions: Nitrofurantoin Monohyd/M-Cryst [Macrobid -] 100 mg PO BID #14 capsule - Referrals Referrals: Murtaza Downey MD [Primary Care Provider] - - Patient Instructions Printed Discharge Instructions: DI for Vaginal Bleeding During Additional Instructions: You were seen today for vaginal bleeding. You have a urinary tract infection, I have sent a prescription to your pharmacy for an antibiotic. Take as advised on label. Do not miss any doses. You will be called with the result of your beta- HCG hormone level. Return to the Emergency Department to have your Beta-HCG level repeated in 48 hours. Follow up with your OBGYN by Wednesday, call their office in the morning and ask for the soonest appointment. Your care is not complete until you follow up. Take tylenol over the counter for your pain, take as advised on label. No heavy lifting, no strenuous exercise, and no vaginal penetration until you are evaluated by your OBGYN. Return sooner for chest pain , shortness of breath, increasing pain, lightheadedness like you may pass out, soaking multiple heavy pads per hour, continuing to pass clots, or any other new , worsening or concerning symptoms. - Post Discharge Activity
--- NOTE | 2018-06-16 18:35 | PDOC ---
Attending Attestation - HPI HPI: 06/16/18 19:02 The patient is a 27 year old female, 12 weeks gestation, who presents to the ED with vaginal bleeding earlier today. Patient states she saw her OBGYN earlier today and had a normal evaluation. Patient states when she came home, she started vaginally bleeding and soaked through her pad. Denies fever or chills. Denies nausea or vomiting. Denies chest pain. Denies any other symptoms. - Physicial Exam PE: 06/16/18 19:02 Constitutional: Awake, alert, oriented. No acute distress. Head: Normocephalic. Atraumatic Eyes: PERRL. EOMI. Conjunctivae are not pale. ENT: Mucous membranes are moist and intact. Posterior pharynx without exudates or erythema. Uvula midline. Neck: Supple. Full ROM. No lymphadenopathy. Cardiovascular: Regular rate. Regular rhythm. S1, S2 regular. Distal pulses are 2+ and symmetric. Pulmonary/Chest: No evidence of respiratory distress. Clear to auscultation bilaterally No wheezing, rales or rhonchi. Abdominal: Soft and non-distended. There is no tenderness. No rebound, guarding or rigidity. No organomegaly. No palpable masses. Good bowel sounds. Vaginal: + Friable Cervix but closed Os on exam. Back: No CVA tenderness. Musculoskeletal: No edema. No cyanosis. No clubbing. Full range of motion in all extremities. Nocalf tenderness. Radial/pedal pulses are intact and 2+ bilaterally Skin: Skin is warm and dry. No petechiae. No purpura. Neurological: Alert and oriented to person, place, and time. Cranial nerves II -XII are grossly intact. Normal speech. Strength is grossly symmetric. No sensory deficits. Psychiatric: Good eye contact. Normal interaction, affect and behavior. <Marilyn Lockhart - Last Filed: 06/16/18 19:02> - Resident Resident Name: Alicia Blevins - ED Attending Attestation I have performed the following: I have examined & evaluated the patient, The case was reviewed & discussed with the resident, I agree w/resident's findings & plan, Exceptions are as noted - Medical Decision Making 06/16/18 18:35 I, Dr. Shamika Lugo, DO, attest that this document has been prepared under my direction and personally reviewed by me in its entirety. I further attest, that it accurately reflects all work, treatment, procedures and medical decision -making performed by me. 06/16/18 18:43 a/p: 27yo at 12 weeks gestation with vaginal bleeding today -soaked through her underwear and 1 pad and passing clots -had ultrasound at the office that was "normal" -no trauma -will send labs, tvus, ua -will monitor and reassess -no active bleeding, small amount of blood in the vault, friable cervix on exam 06/16/18 20:52 FHR 150, IUP visualized uti on labs will give macrobid, O+ type and screen stable for d/c to home and follow up with [facility] as outpt with threatened ab precautiosn <Shamika Lugo - Last Filed: 06/16/18 20:53> Attestations - Attestations 06/16/18 19:02 Documentation prepared by Marilyn Lockhart, acting as medical unit secretary for Shamika Lugo DO <Marilyn Lockhart - Last Filed: 06/16/18 19:02>
[2018-06-16 19:03] LABS: BASO % 0.4 % (0-2.0); EOS % 3.1 % (0-4.5); HEMATOCRIT 35.2 % (32.4-45.2); HEMOGLOBIN 12.1 GM/dL (10.7-15.3); LYMPH % 29.4 % (8-40); MCH 26.4 pg (25.7-33.7); MCHC 34.4 g/dl (32.0-36.0); MEAN CELL VOLUME 76.9 fl (80-96); MEAN PLT VOLUME 9.1 fl (7.5-11.1); MONO % 7.7 % (3.8-10.2); NEUT % 59.4 % (42.8-82.8); PLATELET COUNT 251 K/MM3 (134-434); RBC 4.58 M/mm3 (3.60-5.2); RDW 18.8 % (11.6-15.6)
[2018-06-16 19:14] LABS: URINE APPEARANCE CLOUDY; URINE BILIRUBIN NEGATIVE (<2.0 mg/dL); URINE COLOR YELLOW; URINE GLUCOSE (UA) NEGATIVE (NEGATIVE); URINE KETONE NEGATIVE (NEGATIVE); URINE LEUK ESTERASE 3+ (NEGATIVE); URINE NITRITE NEGATIVE (NEGATIVE); URINE PROTEIN NEGATIVE (NEGATIVE); URINE UROBILINOGEN NEGATIVE mg/dL (0.2-1.0)
[2018-06-16 19:18] LABS: EPI CELLS MODERATE /HPF (FEW); URINE BACTERIA FEW /hpf (NONE SEEN); URINE MUCUS RARE
[2018-06-16 19:35] LABS: ALBUMIN 3.6 g/dl (3.4-5.0); ALK PHOS 72 U/L (45-117); ANION GAP 10 MMOL/L (8-16); BILIRUBIN,TOTAL 0.3 mg/dL (0.2-1); BLOOD UREA NITROGEN 8 mg/dL (7-18); CALCIUM 9.4 mg/dL (8.5-10.1); CHLORIDE 104 mmol/L (98-107); CO2 22 mmol/L (21-32); CREATININE 0.6 mg/dL (0.55-1.3); GLUCOSE,RANDOM 77 mg/dL (74-106); SGOT/AST 21 U/L (15-37); SGPT/ALT 30 U/L (13-61); SODIUM 137 mmol/L (136-145); TOT PROT 7.4 g/dl (6.4-8.2)
[2018-06-16] MEDS ORDERED: NITROFURANTOIN MACROCRYSTAL 50 MG CAPSULE (FP) PO SCH (20:00)
[2018-06-16] MEDS ORDERED: NITROFURANTOIN MACROCRYSTAL 50 MG CAPSULE (FP) ONE (21:21)
== END 2018-06-16 22:25 | disposition home or self-care (01) ==
LOC: JER 17:38
DX: O26.891 Other specified pregnancy related conditions, first trimester (principal); Z3A.12 12 weeks gestation of pregnancy; N93.9 Abnormal uterine and vaginal bleeding, unspecified; K21.9 Gastro-esophageal reflux disease without esophagitis
CPT/HCPCS: 36415; 76801-TC; 80053; 81003; 81015; 84702; 85025; 86850; 86900; 86901; 87086; 99282-25

== ENCOUNTER 2018-06-27 19:56 | Emergency (ER) | payer OTHER ==
--- NOTE | 2018-06-27 20:04 | PDOC ---
Rapid Medical Evaluation Time Seen by Provider: 06/27/18 20:03 Medical Evaluation: Allergies Allergy/AdvReac Type Severity Reaction Status Date / Time Penicillins Allergy "rash,sob" Verified 06/16/18 17:50 seafood Allergy "rash,sob" Uncoded 06/16/18 17:50 06/27/18 20:03 I have performed a brief in-person evaluation of this patient. The patient presents with a chief complaint of:~13 weeks preg w/ worsening vaginal bleeding w/ 1 large clot today. +cramping. . Seen in ED for vag bleed 06/16/18 w/ ~11 week IUP w/ cardiac activity on sono. O+ on T&S. Beta >80K , started on macrobid for uti (ucx contaminated). OB is Dr Eastman Pertinent physical exam findings:Stable, marianna minimally uncomfortable I have ordered the following:beta/US The patient will proceed to the ED for further evaluation Discharge Disposition - Diagnosis Threatened - Referrals - Patient Instructions - Post Discharge Activity
[2018-06-27 20:06] VITALS: BMI 44.0
--- NOTE | 2018-06-27 20:20 | PDOC ---
History of Present Illness - General Chief Complaint: Vaginal Bleeding Stated Complaint: Vaginal Bleeding 13 WEEKS Time Seen by Provider: 06/27/18 20:03 History Source: Patient - History of Present Illness Initial Comments: 06/27/18 21:24 27-year-old female 13 week female with positive IUP complaining of spotting for 1 week, today with heavy bleeding and passing clots. Patient reports that she has been changing up to 2 pads every 2-3 hours with pelvic pain. Patient recently treated for a urinary tract infection and has completed her course of antibiotics. Denies fevers/chills, nausea, vomiting, diarrhea, abdominal pain. Past History - Past Medical History Allergies/Adverse Reactions: Allergies Allergy/AdvReac Type Severity Reaction Status Date / Time Penicillins Allergy "rash,sob" Verified 06/27/18 20:06 seafood Allergy "rash,sob" Uncoded 06/27/18 20:06 Home Medications: Ambulatory Orders Acetaminophen [Tylenol] 650 mg PO PRN PRN 02/11/18 Vit No.129/Iron/Folic [ One Daily Tablet] 1 each PO DAILY 02/11 Anemia: Yes (sickle cell trait) Asthma: No Cancer: No Cardiac Disorders: No CVA: No COPD: No CHF: No Dementia: No Diabetes: No GI Disorders: Yes (acid reflux) Disorders: No HTN: No Hypercholesterolemia: No Liver Disease: No Seizures: No Thyroid Disease: No - Reproductive History (#): 1 Para: 0 Therapeutic (s) & number: Yes Spontaneous : 1 - Immunization History Immunization Up to Date: Yes - Suicide/Smoking/Psychosocial Hx Smoking History: Never smoked Have you smoked in the past 12 months: No Information on smoking cessation initiated: No Hx Alcohol Use: No Drug/Substance Use Hx: No Substance Use Type: Alcohol Review of Systems - Review of Systems Able to Perform ROS?: Yes Is the patient limited French proficient: No Constitutional: No: Symptoms Reported, See HPI, Chills, Diaphoresis, Fever, Loss of Appetite, Malaise, Night Sweats, Weakness, Weight Stable, Unintentional Wgt. Loss, Unexplained wgt Loss, Other : Yes: Other (vaginal bleeding). No: Symptoms Reported, See HPI, Burning, Dysuria, Discharge, Frequency, Flank Pain, Hematuria, Incontinence, Pain, Urgency, Testicular Mass, Testicular Swelling, Lesions, Testicular Pain *Physical Exam - Vital Signs Last Vital Signs Temp Pulse Resp BP Pulse Ox 99.6 F 76 18 110/65 100 06/27/18 20:04 06/27/18 20:04 06/27/18 20:04 06/27/18 20:04 06/27/18 20:04 - Physical Exam General Appearance: Yes: Appropriately Dressed Respiratory/Chest: positive: Lungs Clear, Normal Breath Sounds Female Pelvic Exam: positive: normal external exam, cervical os closed, normal adnexa, vaginal bleeding (in vault). negative: CMT Gastrointestinal/Abdominal: positive: Normal Bowel Sounds, Soft. negative: Tender Musculoskeletal: positive: Normal Inspection. negative: CVA Tenderness Extremity: positive: Normal Capillary Refill, Normal Inspection, Normal Range of Motion Integumentary: positive: Normal Color, Dry, Warm Neurologic: positive: Fully Oriented, Alert Moderate Sedation - Procedure Monitoring Vital Signs: Procedure Monitoring Vital Signs Temperature 99.6 F 06/27/18 20:04 Pulse Rate 76 06/27/18 20:04 Respiratory Rate 18 06/27/18 20:04 Blood Pressure 110/65 06/27/18 20:04 O2 Sat by Pulse Oximetry (%) 100 06/27/18 20:04 ED Treatment Course - LABORATORY CBC & Chemistry Diagram: 06/27/18 21:00 Progress Note - Progress Note Progress Note: A:Vaginal bleeding in P; labs type and screen UA TVUS Medical Decision Making - Medical Decision Making 06/27/18 23:03 no urinary symptoms now. ucx pending. *DC/Admit/Observation/Transfer Diagnosis at time of Disposition: Threatened , Vaginal bleeding affecting early - Discharge Dispostion Disposition: HOME Condition at time of disposition: Improved - Referrals Referrals: Murtaza Downey MD [Primary Care Provider] - Bobby Eastman MD [Staff Physician] - Call tomorrow - Patient Instructions Printed Discharge Instructions: Vaginal Bleeding During Additional Instructions: return to the ER if you are soaking 2 pads per hour, severe abdominal pain, or worsening symptoms. please follow up with a chalker soles as soon as possible. - Post Discharge Activity Forms/Work/School Notes: Back to Work
[2018-06-27 21:21] LABS: BASO % 0.9 % (0-2.0); EOS % 1.5 % (0-4.5); HEMATOCRIT 32.3 % (32.4-45.2); HEMOGLOBIN 11.3 GM/dL (10.7-15.3); LYMPH % 25.8 % (8-40); MCH 27.4 pg (25.7-33.7); MEAN CELL VOLUME 78.4 fl (80-96); MEAN PLT VOLUME 9.9 fl (7.5-11.1); MONO % 5.5 % (3.8-10.2); NEUT % 66.3 % (42.8-82.8); PLATELET COUNT 236 K/MM3 (134-434); RBC 4.13 M/mm3 (3.60-5.2); RDW 18.5 % (11.6-15.6); WHITE BLOOD COUNT 12.5 K/mm3 (4.0-10.0)
[2018-06-27 21:50] LABS: URINE APPEARANCE SLCLOUDY; URINE BILIRUBIN NEGATIVE (<2.0 mg/dL); URINE COLOR YELLOW; URINE GLUCOSE (UA) NEGATIVE (NEGATIVE); URINE KETONE NEGATIVE (NEGATIVE); URINE LEUK ESTERASE 1+ (NEGATIVE); URINE NITRITE NEGATIVE (NEGATIVE); URINE PROTEIN 1+ (NEGATIVE); URINE UROBILINOGEN NEGATIVE mg/dL (0.2-1.0)
[2018-06-27 22:02] LABS: EPI CELLS RARE /HPF (FEW); URINE MUCUS RARE
[2018-06-27 23:20] VITALS: BP 107/68; PULSE 82; TEMP 98.1
== END 2018-06-27 23:22 | disposition home or self-care (01) ==
LOC: JER 19:56
DX: O26.891 Other specified pregnancy related conditions, first trimester (principal); Z3A.13 13 weeks gestation of pregnancy; O20.0 Threatened abortion; N93.9 Abnormal uterine and vaginal bleeding, unspecified
CPT/HCPCS: 36415; 76801-TC; 81003; 81015; 84702; 85025; 86850; 86900; 86901; 87086; 99282-25

== ENCOUNTER 2018-09-28 19:54 | Emergency (ER) | payer OTHER ==
[2018-09-28 20:21] VITALS: PULSE 95; TEMP 98.1; BMI 43.9
--- NOTE | 2018-09-28 21:12 | PDOC ---
Attending Attestation - HPI HPI: 09/28/18 22:00 Patient is a 27 year old female, 28 week , with no significant past medical history who presents to the ED with complaints of left upper quadrant pain that began yesterday evening. Patient reports Left upper quadrant is a positional non radiating pain that she states is a 9/10 in intensity. She reports pain is present when sitting up, laying on her left side and standing straight but is relieved when lying supine. Patient reports taking a dose of Tylenol earlier today with no relief, prompting her to come into the ED for further evaluation. Denies chest pain, Sob. Denies nausea, vomiting. Denies contact with sick individuals, out of state travelling. Denies dysuria, hematuria. Denies constipation, diarrhea. Denies any other symptoms. Allergies: Penicillin, Seafood Social history: No smoking. Social alcohol use. No illicit drugs. Surgical history: D&C on 02/14/2018 PMD: Dr. Downey - Physicial Exam PE: 09/28/18 22:01 Agree with residents Physical Exam. <Reji Cruz - Last Filed: 09/28/18 22:00> - Resident Resident Name: Radha Olivas - ED Attending Attestation I have performed the following: I have examined & evaluated the patient, The case was reviewed & discussed with the resident, I agree w/resident's findings & plan - Medical Decision Making 09/28/18 22:01 27-year-old gravid female with intermittent left upper quadrant pain which is positional Patient is a high risk due to abnormal placenta by her own given history EKG is within normal limits Due to pain involving the abdomen, patient's gestational age and history of placental abnormalities patient will be transferred to labor and delivery for further evaluation by the SERVICE DIRECTOR team <Carin Mckay - Last Filed: 09/28/18 22:08>
--- NOTE | 2018-09-28 21:20 | PDOC ---
History of Present Illness - General Chief Complaint: Chest Pain Stated Complaint: LFT UPPER ABD PAIN - History of Present Illness Initial Comments: Polo Bob is a 27yo woman at 27wks gestation who presents with LUQ v L chest pain that started yesterday. She states the pain is sharp, non- radiating, and positional. The pain only occurs when she is sitting/standing vertically or laying on her left side. It resolves when laying on her right side or reclining. She has no associated shortness of breath, cough, nausea/ vomiting, heartburn, lightheadedness or any other symptom. She has tried acetaminophen at home without any improvement. She denies any fevers, chills, URI symptoms, cough, nausea, change in bowel habits or change in diet. She has felt the baby moving around normally over the past day. Past History - Past Medical History Allergies/Adverse Reactions: Allergies Allergy/AdvReac Type Severity Reaction Status Date / Time Penicillins Allergy "rash,sob" Verified 09/28/18 20:21 seafood Allergy "rash,sob" Uncoded 09/28/18 20:21 Home Medications: Ambulatory Orders Acetaminophen [Tylenol] 650 mg PO PRN PRN 02/11/18 Vit No.129/Iron/Folic [ One Daily Tablet] 1 each PO DAILY 02/11 Anemia: Yes (sickle cell trait) Asthma: No Cancer: No Cardiac Disorders: No CVA: No COPD: No CHF: No Dementia: No Diabetes: No GI Disorders: Yes (acid reflux) Disorders: No HTN: No Hypercholesterolemia: No Liver Disease: No Seizures: No Thyroid Disease: No - Reproductive History (#): 1 Para: 0 Therapeutic (s) & number: Yes Spontaneous : 1 - Immunization History Immunization Up to Date: Yes - Suicide/Smoking/Psychosocial Hx Smoking History: Never smoked Have you smoked in the past 12 months: No Information on smoking cessation initiated: No Hx Alcohol Use: No Drug/Substance Use Hx: No Substance Use Type: Alcohol Review of Systems - Review of Systems Comments:: General: No fevers, no chills, no weight or appetite change, no malaise HEENT: No changes in vision, no changes in hearing, no congestion, no sore throat CV: No chest pain, no palpitations, no LE edema Pulm: No SOB, no cough, no wheezing GI: No nausea or vomiting, no change in bowel habits, no melena : No frequency, no urgency, no dysuria Musc: No back pain, no joint swelling, no recent injury Skin: No rash, no lesions, no erythema Endo: No excessive thirst, no heat/cold intolerance Heme: No unusual bruising or bleeding, no swollen glands Neuro: No syncope, no numbness/tingling, no focal weakness Vasc: No claudication Psych: No recent change in mood, no SI or HI *Physical Exam - Vital Signs Last Vital Signs Temp Pulse Resp BP Pulse Ox 98.1 F 95 H 18 103/64 98 09/28/18 20:17 09/28/18 20:17 09/28/18 20:17 09/28/18 20:17 09/28/18 20:17 - Physical Exam Comments: General: Comfortable, no acute distress HEENT: PERRL, EOMI, MMM, voice normal, normal neck ROM, no LAD Cards: RRR, no murmur appreciated Pulm: Comfortable on room air, clear to auscultation bilaterally, no reproducible chest wall pain Abd: Soft, nontender, nondistended, visibly gravid : No CVA tenderness Ext: Atraumatic. No LE edema. ROM intact. Strength 5/5 and equal bilaterally Vasc: Extremities WWP. Skin: Normal color, no rashes or lesions Neuro: A&Ox3, CN grossly intact, normal speech, motor/sensory grossly intact and symmetric Psych: Mood appropriate to situation Moderate Sedation - Procedure Monitoring Vital Signs: Procedure Monitoring Vital Signs Temperature 98.1 F 09/28/18 20:17 Pulse Rate 95 H 09/28/18 20:17 Respiratory Rate 18 09/28/18 20:17 Blood Pressure 103/64 09/28/18 20:17 O2 Sat by Pulse Oximetry (%) 98 09/28/18 20:17 Medical Decision Making - Medical Decision Making 09/28/18 21:30 Wendy Bob is a 27yo woman at 27wks gestation with a high risk (placental and abnormalities) who presents with LUQ v L chest pain since yesterday. The pain is sharp, non-radiating, and positional. There is no associated tachycardia, shortness of breath, heartburn or any other symptom. - Will obtain EKG to verify that there is no cardiac cause - Will likely need L&D assessment to ensure there is no obstetric cause of the pain. 09/28/18 22:07 - EKG completed. NSR, HR 87. No concerns - Given normal EKG, normal vitals, no cough, SOB, or respiratory difficulties is medically cleared from ED - Spoke to L&D. Will send up for assessment. Discussed with Dr Mckay. Radha Olivas PGY1 *DC/Admit/Observation/Transfer Diagnosis at time of Disposition: Left-sided chest pain - Referrals Referrals: Murtaza Downey MD [Primary Care Provider] - - Patient Instructions - Post Discharge Activity
[2018-09-29 04:06] VITALS: BP 121/65
--- NOTE | 2018-09-29 10:51 | EKG ---
Test Reason : Blood Pressure : / mmHG Vent. Rate : 087 BPM Atrial Rate : 087 BPM P-R Int : 168 ms QRS Dur : 082 ms QT Int : 352 ms P-R-T Axes : 037 017 029 degrees QTc Int : 423 ms POOR DATA QUALITY, INTERPRETATION MAY BE ADVERSELY AFFECTED NORMAL SINUS RHYTHM NORMAL ECG NO PREVIOUS ECGS AVAILABLE Confirmed by EVELIO FERNANDEZ, CALVIN ([id number]) on 09/29/2018 10:50:57 AM Referred By: Confirmed By:CALVIN FRASER MD
== END 2018-09-29 00:20 | disposition home or self-care (01) ==
LOC: JER 19:54
DX: O26.893 Other specified pregnancy related conditions, third trimester (principal); O09.893 Supervision of other high risk pregnancies, third trimester; R07.9 Chest pain, unspecified; D57.3 Sickle-cell trait; Z3A.28 28 weeks gestation of pregnancy
CPT/HCPCS: 93005; 93010; 99281-25

== ENCOUNTER 2020-03-11 17:16 | Emergency (ER) | payer OTHER ==
[2020-03-11 17:28] VITALS: BP 112/63; PULSE 90; TEMP 98.2; BMI 42.0
[2020-03-11] MEDS ORDERED: ACETAMINOPHEN 1000 MG/100 ML VIAL (NON FORMULARY) IVPB ONE (17:29)
[2020-03-11] MEDS ORDERED: METOCLOPRAMIDE HCL INJECTION 10 MG/2 ML VIAL IVPB ONE (17:29)
[2020-03-11] MEDS ORDERED: SODIUM CHLORIDE 1,000 ML IV STA (17:29)
--- NOTE | 2020-03-11 17:30 | PDOC ---
Rapid Medical Evaluation Time Seen by Provider: 03/11/20 17:26 Medical Evaluation: Allergies Allergy/AdvReac Type Severity Reaction Status Date / Time Penicillins Allergy "rash,sob" Verified 03/11/20 17:26 seafood Allergy "rash,sob" Uncoded 03/11/20 17:26 03/11/20 17:26 Pt presents for evaluation of a headache and RUQ pain for the past two days. States that she has been unable to f/u with her PCP d/t covid Exam: TTP RUQ Orders: labs, US, IVF, meds Pt to proceed to the ER for further evaluation Discharge Disposition - Diagnosis Abdominal pain Qualifiers: Abdominal location: unspecified location Qualified Code(s): R10.9 - Unspecified abdominal pain - Referrals - Patient Instructions - Post Discharge Activity
[2020-03-11] MEDS ORDERED: morphine CARPU-JECT 2 MG/1 ML DISP.SYRIN IVPUSH ONE (17:49)
--- NOTE | 2020-03-11 17:49 | PDOC ---
History of Present Illness - General Chief Complaint: Pain, Acute Stated Complaint: R SIDE UNDER BREAST PAIN Time Seen by Provider: 03/11/20 17:26 History Source: Patient Exam Limitations: No Limitations - History of Present Illness Initial Comments: 03/11/20 17:46 29-year-old female past medical history sickle cell trait section presented to the ED with right upper quadrant pain and headache for 2 days. Headache not associated with lacrimation, fever, vomiting, changes in vision, photophobia or neck stiffness; not maximal intensity at onset and non-exertional at onset. Patient states right upper quadrant pain has caused decrease in appetite without nausea vomiting or diarrhea. Exacerbated with deep breathing and pressure. Pt otherwise denies: fevers, chills, syncope, lightheadedness, dizziness, neck pain, chest pain, shortness of breath, palpitations, back pain, nausea, vomiting, diarrhea, constipation. 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) Asthma: No Cancer: No Cardiac Disorders: No CVA: No COPD: No CHF: No Dementia: No Diabetes: No GI Disorders: Yes (acid reflux) Disorders: No HTN: No Hypercholesterolemia: No Liver Disease: No Seizures: No Thyroid Disease: No - Surgical History Abdominal Surgery: No Appendectomy: No Cardiac Surgery: No Cholecystectomy: No Lung Surgery: No Neurologic Surgery: No Orthopedic Surgery: No - Reproductive History Is Patient Now?: No (#): 1 Para: 0 Therapeutic (s) & number: Yes Spontaneous : 1 - Immunization History Td Vaccination: Yes TDAP Vaccination: Yes Immunization Up to Date: Yes - Psycho-Social/Smoking History Smoking History: Never smoked Have you smoked in the past 12 months: No - Substance Abuse Hx (Audit-C & DAST Scrn) How often the patient has a drink containing alcohol: Never Score: In Men: 4 or > Positive; In Women: 3 or > Positive: 0 Screen Result (Pos requires Nsg. Audit-10AR): Negative In the last yr the pt used illegal drug/Rx for NonMed reason: No Score: Yes response is considered Positive: 0 Screen Result (Positive result requires Nsg. DAST-10): Negative *Physical Exam - Vital Signs Last Vital Signs Temp Pulse Resp BP Pulse Ox 98.2 F 90 18 112/63 100 03/11/20 17:27 03/11/20 17:27 03/11/20 17:27 03/11/20 17:27 03/11/20 17:27 - Physical Exam 03/11/20 17:47 Gen: AAOx 3, no acute distress, comfortable, no signs of respiratory distress HENT: atraumatic, normocephalic with no laceration or contusion. Nasal mucosa without erythema. Oropharynx without erythema or exudates. Mucous membranes moist. EYES: PERRL, EOM intact, conjunctiva pink NECK: supple; trachea midline; no JVD, no lymphadenopathy, or thyromegaly CV: RRR no murmurs, gallops, or rubs. CHEST: CTA b/l no wheezing, rales or rhonchi ABD: +BS/ND. TTP RUQ with + [place] sign; soft, no rebound, no guarding EXTREMITY: no cyanosis or erythema. 2+ dorsalis pedis, posterior tibial, and radial pulse. No pedal edema; no calf swelling or tenderness SKIN: no rash, warm and dry, no diaphoresis HEME: no purpura or ecchymosis NEURO: normal speech, CN II-XII intact, sensation intact, normal gait, able to tip toe and heel walk, romberg and pronator drift absent, no cerebellar deficits, normal finger to nose, heel to lyons, rapid alternating movements, no tremor, no dysmetria MS: 5/5 strength in all extremities, FROM intact in all extremities ED Treatment Course - LABORATORY CBC & Chemistry Diagram: 03/11/20 17:30 03/11/20 17:30 Medical Decision Making - Medical Decision Making 03/11/20 17:47 29-year-old female right upper quadrant pain and headache Vital signs stable Will obtain labs right upper quadrant ultrasound and administer medication for pain Will reassess based on Labs show white blood cell count of 14.2 rest of labs WNL UA significant for UTI TOLBERT resolved with medications Due to shift change pt signed out to [facility] pending US RUQ. Provider aware of UTI and elevated WBC count. Discharge - Discharge Information Problems reviewed: Yes Clinical Impression/Diagnosis: Abdominal pain Qualifiers: Abdominal location: unspecified location Qualified Code(s): R10.9 - Unspecified abdominal pain Condition: Stable - Follow up/Referral Referrals: Paula Hazel DO [Primary Care Provider] - - Patient Discharge Instructions - Post Discharge Activity
[2020-03-11 18:23] LABS: BASO % 0.4 % (0-2.0); EOS % 1.7 % (0-4.5); HEMATOCRIT 35.4 % (32.4-45.2); HEMOGLOBIN 11.4 GM/dL (10.7-15.3); LYMPH % 27.2 % (8-40); MCH 24.8 pg (25.7-33.7); MCHC 32.2 g/dl (32.0-36.0); MEAN CELL VOLUME 76.8 fl (80-96); MEAN PLT VOLUME 9.5 fl (7.5-11.1); MONO % 6.1 % (3.8-10.2); NEUT % 64.6 % (42.8-82.8); PLATELET COUNT 309 K/MM3 (134-434); RBC 4.61 M/mm3 (3.60-5.2); WHITE BLOOD COUNT 14.2 K/mm3 (4.0-10.0)
[2020-03-11 18:25] LABS: EPI CELLS >36 /uL (0-25.1); HYALINE CASTS 2 /uL (0-3.1); URINE APPEARANCE CLOUDY; URINE BACTERIA 2167 /uL (0-1359); URINE BILIRUBIN NEGATIVE (NEGATIVE); URINE COLOR YELLOW; URINE GLUCOSE (UA) NEGATIVE (NEGATIVE); URINE KETONE NEGATIVE (NEGATIVE); URINE LEUK ESTERASE 2+ (NEGATIVE); URINE NITRITE NEGATIVE (NEGATIVE); URINE PROTEIN NEGATIVE (NEGATIVE); URINE RBC 8 /uL (0-23.9); URINE UROBILINOGEN 0.2 mg/dL (0.2-1.0); URINE WBC 189 /uL (0-25.8)
[2020-03-11 18:38] LABS: HCG,QUALITATIVE URINE Negative
[2020-03-11] MEDS ORDERED: ACETAMINOPHEN INJECTION 100 ML IVPB ONE (18:38)
[2020-03-11] MEDS ORDERED: MORPHINE SULFATE 2 MG/ML VIAL ONE (18:38)
[2020-03-11] MEDS ORDERED: METOCLOPRAMIDE HCL INJECTION 10 MG/2 ML VIAL ONE (18:38)
[2020-03-11 18:50] LABS: ALBUMIN 3.8 g/dl (3.4-5.0); BILIRUBIN,TOTAL 0.4 mg/dL (0.2-1); BLOOD UREA NITROGEN 13.2 mg/dL (7-18); CALCIUM 9.3 mg/dL (8.5-10.1); CREATININE 0.8 mg/dL (0.55-1.3); POTASSIUM 4.1 mmol/L (3.5-5.1); TOT PROT 7.7 g/dl (6.4-8.2)
--- NOTE | 2020-03-11 19:38 | PDOC ---
*Physical Exam - Vital Signs Last Vital Signs Temp Pulse Resp BP Pulse Ox 98.2 F 90 18 112/63 100 03/11/20 17:27 03/11/20 17:27 03/11/20 17:27 03/11/20 17:27 03/11/20 17:27 ED Treatment Course - LABORATORY CBC & Chemistry Diagram: 03/11/20 17:30 03/11/20 17:30 - ADDITIONAL ORDERS Additional order review: Laboratory Results 03/11/20 03/11/20 17:30 17:30 Sodium 139 Potassium 4.1 Chloride 103 Carbon Dioxide 26 Anion Gap 9 BUN 13.2 Creatinine 0.8 Est GFR (CKD-EPI)AfAm 115.47 Est GFR (CKD-EPI)NonAf 99.63 Random Glucose 77 Calcium 9.3 Total Bilirubin 0.4 AST 17 ALT 22 Alkaline Phosphatase 81 Total Protein 7.7 Albumin 3.8 Lipase 144 Urine Color Yellow Urine Appearance Cloudy Urine pH 5.0 Ur Specific [place] 1.018 Urine Protein Negative Urine Glucose (UA) Negative Urine Ketones Negative Urine Blood Trace Urine Nitrite Negative Urine Bilirubin Negative Urine Urobilinogen 0.2 Ur Leukocyte Esterase 2+ H Urine WBC (Auto) 189 Urine RBC (Auto) 8 Urine Casts (Auto) 2 U Epithel Cells (Auto) >36 Urine Bacteria (Auto) 2167 Urine HCG, Qual Negative 03/11/20 17:30 RBC 4.61 MCV 76.8 L MCHC 32.2 RDW 17.0 H MPV 9.5 Neutrophils % 64.6 Lymphocytes % 27.2 Monocytes % 6.1 Eosinophils % 1.7 Basophils % 0.4 - Medications Given in the ED: ED Medications Discontinued Medications Generic Name Dose Route Start Last Admin Trade Name Nolan PRN Reason Stop Dose Admin Acetaminophen 1,000 mg 03/11/20 17:29 03/11/20 18:40 Ofirmev Injection - IVPB 03/11/20 17:30 1,000 mg ONCE ONE Administration Diphenhydramine HCl 12.5 mg 03/11/20 17:29 03/11/20 18:40 Benadryl Injection - IVPB 03/11/20 17:30 12.5 mg ONCE ONE Administration Sodium Chloride 1,000 mls @ 1,000 mls/hr 03/11/20 17:29 03/11/20 18:40 Normal Saline - IV 03/11/20 18:28 1,000 mls/hr ASDIR STA Administration Metoclopramide HCl 10 mg 03/11/20 17:29 03/11/20 18:40 Reglan Injection - IVPB 03/11/20 17:30 10 mg ONCE ONE Administration Morphine Sulfate 1 mg 03/11/20 17:49 03/11/20 18:48 Morphine Injection - IVPUSH 03/11/20 17:50 1 mg ONCE ONE Administration Medical Decision Making - Medical Decision Making 03/11/20 19:37 Patient seen by the advanced practice provider under my supervision. Ancillary testing reviewed as necessary. I agree with plan as outlined by the advanced practice provider. Discharge - Discharge Information Problems reviewed: Yes Clinical Impression/Diagnosis: Gallstones UTI (urinary tract infection) Qualifiers: Urinary tract infection type: acute cystitis Hematuria presence: without hematuria Qualified Code(s): N30.00 - Acute cystitis without hematuria Condition: Fair Disposition: HOME - Additional Discharge Information Prescriptions: Ciprofloxacin [Cipro (Restricted To Id)] 500 mg PO Q12H #14 tablet - Follow up/Referral Referrals: Aime Colon MD [Staff Physician] - Paula Hazel DO [Primary Care Provider] - - Patient Discharge Instructions Additional Instructions: Rest, drink lots of fluids: Teas, water, soups Avoid contact with others until fevers and symptoms resolved Lots of handwashing and good hygiene Continue [id number] medications for symptomatic relief Tylenol or Motrin for fever and pain Continue all of antibiotics until completed Followup with private physician in one week for repeat urinalysis/reevaluation Return to emergency department for worsened symptoms, fevers, dehydration - Post Discharge Activity
--- NOTE | 2020-03-11 19:44 | PDOC ---
*Physical Exam - Vital Signs Last Vital Signs Temp Pulse Resp BP Pulse Ox 98.2 F 90 18 112/63 100 03/11/20 17:27 03/11/20 17:27 03/11/20 17:27 03/11/20 17:27 03/11/20 17:27 - Physical Exam Gastrointestinal/Abdominal: positive: Tender (RUQ), Soft. negative: Normal Bowel Sounds ED Treatment Course - LABORATORY CBC & Chemistry Diagram: 03/11/20 17:30 03/11/20 17:30 - ADDITIONAL ORDERS Additional order review: Laboratory Results 03/11/20 03/11/20 17:30 17:30 Sodium 139 Potassium 4.1 Chloride 103 Carbon Dioxide 26 Anion Gap 9 BUN 13.2 Creatinine 0.8 Est GFR (CKD-EPI)AfAm 115.47 Est GFR (CKD-EPI)NonAf 99.63 Random Glucose 77 Calcium 9.3 Total Bilirubin 0.4 AST 17 ALT 22 Alkaline Phosphatase 81 Total Protein 7.7 Albumin 3.8 Lipase 144 Urine Color Yellow Urine Appearance Cloudy Urine pH 5.0 Ur Specific [place] 1.018 Urine Protein Negative Urine Glucose (UA) Negative Urine Ketones Negative Urine Blood Trace Urine Nitrite Negative Urine Bilirubin Negative Urine Urobilinogen 0.2 Ur Leukocyte Esterase 2+ H Urine WBC (Auto) 189 Urine RBC (Auto) 8 Urine Casts (Auto) 2 U Epithel Cells (Auto) >36 Urine Bacteria (Auto) 2167 Urine HCG, Qual Negative 03/11/20 17:30 RBC 4.61 MCV 76.8 L MCHC 32.2 RDW 17.0 H MPV 9.5 Neutrophils % 64.6 Lymphocytes % 27.2 Monocytes % 6.1 Eosinophils % 1.7 Basophils % 0.4 - Medications Given in the ED: ED Medications Discontinued Medications Generic Name Dose Route Start Last Admin Trade Name Freq PRN Reason Stop Dose Admin Acetaminophen 1,000 mg 03/11/20 17:29 03/11/20 18:40 Ofirmev Injection - IVPB 03/11/20 17:30 1,000 mg ONCE ONE Administration Diphenhydramine HCl 12.5 mg 03/11/20 17:29 03/11/20 18:40 Benadryl Injection - IVPB 03/11/20 17:30 12.5 mg ONCE ONE Administration Sodium Chloride 1,000 mls @ 1,000 mls/hr 03/11/20 17:29 03/11/20 18:40 Normal Saline - IV 03/11/20 18:28 1,000 mls/hr ASDIR STA Administration Metoclopramide HCl 10 mg 03/11/20 17:29 03/11/20 18:40 Reglan Injection - IVPB 03/11/20 17:30 10 mg ONCE ONE Administration Morphine Sulfate 1 mg 03/11/20 17:49 03/11/20 18:48 Morphine Injection - IVPUSH 03/11/20 17:50 1 mg ONCE ONE Administration ED Progress Note - Progress Note Progress Note: 03/11/20 19:44 Received patient from KAYLA Martines. Briefly this is a 29-year-old woman with right upper quadrant pain. Laboratory testing notable for leukocytosis 14.2. No shift is present. Chemistries are unremarkable. Urinalysis suggestive of UTI with 2+ leuk oesterase, 189 WBCs and 2100 bacteria there is greater than 36 epithelial cells. Patient is pending right upper quadrant ultrasounds for disposition. Medical Decision Making - Medical Decision Making 03/11/20 21:21 Laboratory Tests 03/11/20 03/11/20 03/11/20 17:30 17:30 17:30 WBC 14.2 H RBC 4.61 Hgb 11.4 Hct 35.4 MCV 76.8 L MCH 24.8 L MCHC 32.2 RDW 17.0 H Plt Count 309 D MPV 9.5 Absolute Neuts (auto) 9.1 H Neutrophils % 64.6 Lymphocytes % 27.2 Monocytes % 6.1 Eosinophils % 1.7 Basophils % 0.4 Nucleated RBC % 0 Sodium 139 Potassium 4.1 Chloride 103 Carbon Dioxide 26 Anion Gap 9 BUN 13.2 Creatinine 0.8 Est GFR (CKD-EPI)AfAm 115.47 Est GFR (CKD-EPI)NonAf 99.63 Random Glucose 77 Calcium 9.3 Total Bilirubin 0.4 AST 17 ALT 22 Alkaline Phosphatase 81 Total Protein 7.7 Albumin 3.8 Lipase 144 Urine Color Yellow Urine Appearance Cloudy Urine pH 5.0 Ur Specific [place] 1.018 Urine Protein Negative Urine Glucose (UA) Negative Urine Ketones Negative Urine Blood Trace Urine Nitrite Negative Urine Bilirubin Negative Urine Urobilinogen 0.2 Ur Leukocyte Esterase 2+ H Urine WBC (Auto) 189 Urine RBC (Auto) 8 Urine Casts (Auto) 2 U Epithel Cells (Auto) >36 Urine Bacteria (Auto) 2167 Urine HCG, Qual Negative Ultrasound is read by Dr. Pierce: Cholelithiasis is noted without sonographic evidence of acute cholecystitis. Early acute cholecystitis may not be demonstratable on sonography. No biliary tract dilatation is seen. There is probable diffuse hepatic steatosis Right kidney shows no abnormality We will treat patient for Cipro 500 mg twice a day for the next 7 days. Patient to be given referral for general surgeon for follow-up of the gallstones. I discussed the physical exam findings, ancillary test results and final diagnoses with the patient. I answered all of the patient's questions. The patient was satisfied with the care received and felt comfortable with the discharge plan and treatment plan. The patient will call their primary care physician within 24 hours to arrange follow-up and will return to the Emergency Department with any new, persistent or worsening symptoms. Portions of this note have been documented using voice recognition software. As a result, errors may occur in the paint roller covers supervisor process. Effort has been made to correct all grammatical and paint roller covers supervisor error, but some may have been missed which may produce sporadic inaccurate paint roller covers supervisor or nonsensical phrases. Discharge - Discharge Information Problems reviewed: Yes Clinical Impression/Diagnosis: Gallstones UTI (urinary tract infection) Qualifiers: Urinary tract infection type: acute cystitis Hematuria presence: without hematuria Qualified Code(s): N30.00 - Acute cystitis without hematuria Condition: Fair Disposition: HOME - Admission No - Additional Discharge Information Prescriptions: Ciprofloxacin [Cipro (Restricted To Id)] 500 mg PO Q12H #14 tablet - Follow up/Referral Referrals: Paula Hazel DO [Primary Care Provider] - Aime Colon MD [Staff Physician] - - Patient Discharge Instructions Additional Instructions: Rest, drink lots of fluids: Teas, water, soups Avoid contact with others until fevers and symptoms resolved Lots of handwashing and good hygiene Continue [id number] medications for symptomatic relief Tylenol or Motrin for fever and pain Continue all of antibiotics until completed Followup with private physician in one week for repeat urinalysis/reevaluation Return to emergency department for worsened symptoms, fevers, dehydration - Post Discharge Activity
== END 2020-03-11 21:52 | disposition home or self-care (01) ==
LOC: JER 17:16
PROC: 3E033NZ Introduction of Analgesics, Hypnotics, Sedatives into Peripheral Vein, Percutaneous Approach (ICD-10-PCS; principal; 2020-03-11)
PROC: 3E033GC Introduction of Other Therapeutic Substance into Peripheral Vein, Percutaneous Approach (ICD-10-PCS; 2020-03-11)
PROC: 3E0337Z Introduction of Electrolytic and Water Balance Substance into Peripheral Vein, Percutaneous Approach (ICD-10-PCS; 2020-03-11)
DX: R10.9 Unspecified abdominal pain (principal); N30.00 Acute cystitis without hematuria
CPT/HCPCS: 36415; 76705-TC; 80053; 81003; 83690; 84703; 85025; 96361; 96374; 96375; 99284-25; J0131

== ENCOUNTER 2020-05-23 04:18 | Day surgery (SDC) | payer OTHER ==
[2020-05-22 15:35] VITALS: BMI 43.9
[~2020-05-23 04:18] MED LIST: BUPIVACAINE HCL/PF 0.5% (5 MG/ML) 30 ML VIAL IJ ONE
[2020-05-23] MEDS ORDERED: CLINDAMYCIN PHOSPHATE 600 MG/4 ML VIAL IVPB ONE (08:18)
[2020-05-23] MEDS ORDERED: BUPIVACAINE HCL/PF 0.5% (5 MG/ML) 30 ML VIAL IJ ONE (09:24)
[2020-05-23] MEDS ORDERED: ONDANSETRON 4 MG/2 ML VIAL IVPUSH PRN (10:25)
[2020-05-23] MEDS ORDERED: oxyCODONE HCL 5 MG TABLET PO PRN ×2 (10:25)
[2020-05-23] MEDS ORDERED: LACTATED RINGERS SOLUTION 1,000 ML IV SCH (10:30)
[2020-05-23] MEDS ORDERED: ONDANSETRON 4 MG/2 ML VIAL ONE (12:32)
[2020-05-23] MEDS ORDERED: oxyCODONE HCL 5 MG TABLET ONE (14:25)
[2020-05-23 16:58] VITALS: BP 120/72; PULSE 74; TEMP 97.8
== END 2020-05-23 16:30 | disposition home or self-care (01) ==
LOC: JASU-SURG 04:18
PROVIDERS: ATTEND Surgery
PROC: 0FT44ZZ Resection of Gallbladder, Percutaneous Endoscopic Approach (ICD-10-PCS; principal; 2020-05-23 08:00)
DX: K80.10 Calculus of gallbladder with chronic cholecystitis without obstruction (principal)
CPT/HCPCS: 84703; 88304-TC; 94760

== ENCOUNTER 2020-09-24 17:58 | Emergency (ER) | payer OTHER ==
[2020-09-24 18:04] VITALS: BP 100/56; PULSE 84; TEMP 99.7; BMI 44.2
[2020-09-24] MEDS ORDERED: ACETAMINOPHEN 1000 MG/100 ML VIAL (NON FORMULARY) IVPB ONE (18:38)
[2020-09-24] MEDS ORDERED: SODIUM CHLORIDE 0.9% 500 ML INFUS.BAG IV ONE (18:38)
[2020-09-24] MEDS ORDERED: METOCLOPRAMIDE HCL INJECTION 10 MG/2 ML VIAL IVPUSH ONE (18:39)
[2020-09-24] MEDS ORDERED: METOCLOPRAMIDE HCL INJECTION 10 MG/2 ML VIAL ONE (18:47)
[2020-09-24] MEDS ORDERED: ACETAMINOPHEN INJECTION 100 ML IVPB ONE (18:48)
[2020-09-24 18:55] LABS: BASO % 0.6 % (0-2.0); EOS % 2.3 % (0-4.5); HEMATOCRIT 34.6 % (32.4-45.2); HEMOGLOBIN 11.5 GM/dL (10.7-15.3); LYMPH % 27.1 % (8-40); MCH 24.9 pg (25.7-33.7); MCHC 33.3 g/dl (32.0-36.0); MEAN CELL VOLUME 74.8 fl (80-96); MEAN PLT VOLUME 8.9 fl (7.5-11.1); MONO % 5.9 % (3.8-10.2); NEUT % 64.1 % (42.8-82.8); PLATELET COUNT 341 K/MM3 (134-434); RBC 4.63 M/mm3 (3.60-5.2); RDW 18.1 % (11.6-15.6); WHITE BLOOD COUNT 13.5 K/mm3 (4.0-10.0)
[2020-09-24 19:22] LABS: POTASSIUM 4.2 mmol/L (3.5-5.1)
[2020-09-24 19:24] LABS: CALCIUM 9.7 mg/dL (8.5-10.1)
[2020-09-24 19:25] LABS: ALBUMIN 3.8 g/dl (3.4-5.0); BLOOD UREA NITROGEN 17.4 mg/dL (7-18)
[2020-09-24 19:30] LABS: BILIRUBIN,TOTAL 0.4 mg/dL (0.2-1); TOT PROT 7.8 g/dl (6.4-8.2)
== END 2020-09-24 20:40 | disposition home or self-care (01) ==
LOC: JER 17:58
PROC: 3E0333Z Introduction of Anti-inflammatory into Peripheral Vein, Percutaneous Approach (ICD-10-PCS; principal; 2020-09-24)
PROC: 3E033GC Introduction of Other Therapeutic Substance into Peripheral Vein, Percutaneous Approach (ICD-10-PCS; 2020-09-24)
DX: R51.9 Headache, unspecified (principal)
CPT/HCPCS: 36415; 80053; 85025; 99284-25; J0131